=== PATIENT | male | born 1955 | race Caucasian/White ===

== ENCOUNTER 2021-03-04 17:29 | Inpatient (IN) | payer OTHER ==
[~2021-03-04] VITALS: Ht 180.3 cm; Wt 68.5 kg
[2021-03-04 19:55] VITALS: BP 120/70
[2021-03-04] MEDS ORDERED: CARBIDOPA-LEVO1 EA10 PO (20:48)
[2021-03-04] MEDS ORDERED: LANTUS100 UNIT/M SUBQ (20:50)
[2021-03-04] MEDS ORDERED: HUMALOG100 UNIT/1 SUBQ (20:51)
[2021-03-04] MEDS ORDERED: SEROQUEL 25 MG25 M1 PO (20:52)
--- NOTE | 2021-03-05 05:25 | NUR ---
RECEIVED REPORT FROM OFFGOING [facility] RN, SHE HAD RECEIVED REPORT FROM PENDING SALE TO [facility] ED. 03-04-21 PT ARRIVED 1855 PT AAOX4, VS B/P 120/70, P 108, R 16, T 97.8, 100% O2 SAT RA RR EVEN AND NONLABRED. PT LUNGS CLEAR, HT RR, ABD ACTIVE/SOFT/FLAT. PT HAS HX QUILEUTE, HTN, DMII. PT PRESENTS CALM AND COOPERATIVE, BUT TALKS LOUD R/T QUILEUTE, PT IS VERY SOCIALABLE. PT DENIES SI/HI. HCP'S CONTACTED AND ORDERS RECEIVED. LATER PT PRESENTED WITH FORGETFULNESS AND CONFUSION, BUT WAS EASILY REORINATED. PT HAS BEEN PLEASANT AND NOTED PT TRYING TO BE SOCIABILE AND HELPFUL TO PEER. ZERO S/S OF ACUTE DISTRESS NOTED, PT WILL CONTINUE TO BE MONITOR PER [facility] PROTOCOL.
[2021-03-05 06:17] LABS: CHOLESTEROL 161 mg/dL (<200); HDL CHOLESTEROL 40 mg/dL (>40); LDL CHOLESTEROL 97 mg/dL (<100); TRIGLYCERIDE 123 mg/dL (<150); VLDL 25 mg/dL (<40)
[2021-03-05 06:22] LABS: SERUM ASSESSMENT Clear
[2021-03-05 09:12] VITALS: BP 113/73
[2021-03-05 09:18] LABS: ANION GAP 10 mmol/L (7-16); BUN 18 mg/dL (7-18); CALCIUM 10.1 mg/dL (8.5-10.1); CHLORIDE 104 mmol/L (98-107); CO2 26 mmol/L (21-32); CREATININE 0.8 mg/dL (0.7-1.3); GLUCOSE 210 mg/dL (74-106); MAGNESIUM 2.2 mg/dL (1.8-2.4); POTASSIUM 4.6 mmol/L (3.5-5.1); SODIUM 140 mmol/L (136-145)
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
[2021-03-05 19:29] VITALS: BP 118/91
[2021-03-06 01:06] LABS: GLYCOHEMOGLOBIN (HGB A1C) 10.8 % (4.8-5.6)
--- NOTE | 2021-03-06 04:59 | NUR ---
03-05-21 CARE TRANSFERRED 1914 OBSERVED PT SITTING IN DAY ROOM WITH SCRAP BALLER, PT IS CURRENTLY ON 1:1 WHILE AWAKE. PT AAOX3, VSS STABLE, NOTED SLIGHTLY ELEVATED PULSE 110, JORDY PULSE APICAL 90, RR EVEN AND NONLABOED ON RA. PT DENIES PAIN AND SI/HI. PT IS VERY SOCIALABLE AND WILLING COMMUNICATION, PT TALKS LOUD R/T HIS HARD OF HEARING. LATER NOTED PT PRESENTATION CHANGED AND HE WAS CONFUSED AND EXIT SEEKING. DURING MEDICATION PT HAD NO DIFFICULTIES. PT HAS BEEN RESTLESS AND IMPULSIVE, AND TRYING TO CARRY CONVERSATION WITH OTHER, BUT OFTEN TALKING TO HIMSELF. PT HAS HAD MOMENTS OF DELUSIONS, WHERE HE REPORTED THAT WE NEED TO SHUT THE WINDOWS OR THE RACOON'S WILL GET IN. ZERO S/S OF ACUTE DISTRESS NOTED, PT WILL CONTINUE TO BE MONITOR PER [facility] PROTOCOL.
--- NOTE | 2021-03-06 09:50 | NUR ---
LARRY and Dr. Lopez spoke with pt's daughter Katie ([phone]) and obtained hx about pt. LARRY scheduled a family meeting with Katie on 03/11 @1130 am. LARRY sent [facility] Welcome to [email or web address] LARRY team will continue to follow pt during his stay on this unit.
[2021-03-06 09:54] VITALS: BP 100/74
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
--- NOTE | 2021-03-06 17:51 | NUR ---
Alert and orientated to name only. Occassional visual hallucinations. Calm and cooperative, redirectable. Denies SI/HI. Breath sounds clear. Reg HR auscultated. Color pink with brisk capillary refill and palpable peripheral pulses. Independent with voiding. Active bowel sounds over soft, flat abdomen. Milk of Mag given PO d/t no BM since prior to admission. Ambulating with regular, steady gait. Compliant with meds today, taking whole with liquid.
[2021-03-06 20:51] VITALS: BP 96/67
--- NOTE | 2021-03-07 02:49 | NUR ---
ASSUMED CARE OF PATIENT 03/06/2021 @ 1900. PATIENT IN FULLY EXTENDED RECLINER WITH ADDITIONAL CHAIR AT FEET TO KEEP THEM ELEVATED. PATIENT IS RESTING WITH EYES CLOSED, DEEP, EVEN RESPIRATIONS. PATIENT AWAKENS TO NAME AND MOVEMENT BEUT QUICKLY RETURNS TO CLOSING EYES AND NOT INTERACTING WITH STAFF. ADVISED PATIENT I NEEDED TO DO ASSESSMENT OF HIS ABDOMEN AND LUNGS, AND GIVE HIS DOSE OF INSULIN, HE OPENED HIS EYES SLIGHTLY WHILE I PERFORMED BY EXAM AND ADMINISTERED HIS INSULIN. HE NEVER VERBALLY ENGAGED, AND DID NOT TAKE HIS 2100 DOSE OF SEROQUEL. HE WAS COOPERATIVE WITH ANCILLARY STAFF IN GETTING HIS VITAL SIGNS AND ACCUCHECK DONE. HE HAS REMAINED IN THE DAYROOM RECLINER, RESTING WITH EYES CLOSED, RESPIRATIONS WITH EASE AND NO APPARENT DISTRESS AND HAS NOT MADE ANY NEEDS KNOWN TO STAFF. STAFF WILL CONTINUE TO MONITOR MR. HALL Q 12 [facility] PROTOCOL AND INTERVENE NEEDED.
[2021-03-07 09:32] VITALS: BP 104/61
--- NOTE | 2021-03-07 13:33 | NUR ---
Alert and orientated to name only. No speech/behavior suggestive of SI/HI. Calm, cooperative and compliant. Sitting quietly in dining room, gets up and ambulates with regular, steady gait. Breath sounds clear. Reg HR auscultated. Color pink with brisk capillary refill and palpable peripheral pulses. No edema noted. Independent with voiding. Active bowel sounds over soft, flat abdomen. No BM documented this admission, MOM given yesterday without results. Ambulates with regular, steady gait.
[2021-03-07 20:12] VITALS: BP 104/61
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
--- NOTE | 2021-03-08 06:23 | NUR ---
PATIENT HAS CONTINUED TO SIT ON EDGE OF BED IN ROOM, CALM BUT EASILY AGGITATED WHEN QUESTIONED IF HE WANTED TO LIE DOWN. WHEN ASKING IF PATIENT WANTED TO COME IN TO DAYROOM AND WATCH THE NEWS AND HAVE A CUP OF COFFEE, PATIENT STATED THE FOLLOWING, "THEY TOLD ME TO WAIT IN ROOM 202. MOM WAS RIGHT THERE ON THE BED AND NOW SHE'S GONE. I HAVEN'T LFET HER. WHERE DID THEY TAKE HER. IT MUST REALLY BE POURING DOWN OUTSIDE IF THEY WON'T VINICIUS LET ME GO WITH HER." PATIENT BEGAN WALKING TO DAYROOM AND THEN STATED HE NEEDED TO SHIT AND RETURNED TO HIS ROOM.
[2021-03-08 08:43] VITALS: BP 150/84
[2021-03-08 13:25] LABS: ABSOLUTE NEUTROPHILS 4.4 thou/uL (1.4-8.2); BASOPHILS 1.2 % (0.0-2.0); EOSINOPHILS 1.3 % (0.0-3.0); HEMATOCRIT 40.3 % (42.0-52.0); HEMOGLOBIN 13.5 gm/dL (14.0-18.0); LYMPHOCYTES 24.9 % (24.0-44.0); MCH 30.6 pg (26.0-34.0); MCHC 33.5 g/dL (28.0-37.0); MCV 91.4 fL (80.0-100.0); MONOCYTES 9.1 % (1.0-8.0); PLATELET COUNT 171 thou/uL (150-400); POLYS 63.5 % (36.0-66.0); RBC 4.41 mil/uL (4.50-6.00); RDW 14.5 % (10.5-14.5)
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
--- NOTE | 2021-03-09 04:31 | NUR ---
PATIENT HAS CONTINUED TO BE RESTLESS, INTRUSIVE, WANDERING UNIT, TRYING TO OPEN ALL DOORS ON UNIT, ENTERING PATIENT ROOMS, DIFFICULT TO REDIRECT. CONTINUES TO BE HYPERVERBAL, STATING HE CAN'T GO IN TO HIS ROOM BECAUSE ASIF DOES NOT WANT HIM IN THERE ANY LONGER. WAS COOPERATIVE WITH LAB DRAW THIS A.M. AND CONTINUES TO TALK WHILE SITTING IN DAYROOM THAT HAS THE LIGHTS DIMMED. STAFF WILL CONTINUE TO MONITOR PER [facility] PROTOCOL.
[2021-03-09 06:28] LABS: ALBUMIN 3.8 g/dL (3.4-5.0); CALCIUM 10.9 mg/dL (8.5-10.1); CREATININE 1.1 mg/dL (0.7-1.3); POTASSIUM 4.3 mmol/L (3.5-5.1); TOTAL PROTEIN 7.4 g/dL (6.4-8.2)
[2021-03-09 08:56] VITALS: BP 108/78
--- NOTE | 2021-03-09 09:01 | NUR ---
ASSUMED CARE AT 0700 TODAY. PT. SITTING IN THE DINING ROOM REFUSING BLOOD SUGAR AND REFUSED TO TAKE HIS MEDICATIONS. IM OLANZAPIME GOTTEN READY, SECURITY CALLED AND IM GIVEN TO THE PT. PT. GOT UP RUNNING TO HIS ROOM AND SLAMMING THE DOOR. PCT AND THIS RN WENT TO PT. ROOM. HE TRIED TO HOLD THE DOOR SHUT, BUT DID GIVE UP. RN WAS GIVING PEER MEDICATIONS. HE TRIED TO TAKE HER BREAKFAST. STAFF STOPPED HIM. PT. STATES HE IS SEEING AND HEARING THINGS. HE IS TALKING ABOUT SEEING/HEARING HIS BROTHER AND OTHER FAMILY MEMBERS.
[2021-03-09 19:26] VITALS: BP 114/79
--- NOTE | 2021-03-09 22:33 | NUR ---
Assumed care of pt at 1910 from day shift nurse. Pt at that time was sitting in day room occasionally mumbling to himself. He was cooperative with staff and is accepting of redirection when needed. Pt is alert to person only. Pt continues to have visual hallucinations as evidence by he thought my medication cart was a type of machine he needed to fix. He did offer to fix it for me. Pt blood glucose was 231 at hs, received his 20 units of lantus, pt took his medication and this nurse assessed if he swallowed it and he laughed at my questions but he did comply, pt is receptive to following directions from PCT, Pt continues to ramble as he is walking to his room, pt now is currently lying in his bed and appears to be sleeping, monitoring pt per [facility] protocol. PT ambulates ad harpreet without assistive devices and is pretty steady with his gait, Lung sounds clear, abd soft non tender, Denies SI/HI but continues to have visual hallucinations, did not currently display signs of auditory hallucinations.
[2021-03-10 08:53] VITALS: BP 127/86
--- NOTE | 2021-03-10 15:39 | NUR ---
Assumed pt care at 0700. pt was oriented to person. Assessments completed, vss. Took meds whole, no difficulty noted. No sign of acute distress noted upon assessments. Ambulates with a steady gait. co-operative with care and meds admin. AT approximately 1500, pt started talking to unseen person and responding. Insulin adminisered as ordered. pt wanders the unit talking to self. pt was irritable but was redirectable. No c/o pain at this time. NO sign of si/hi noted. At this time pt is in the day room. will continue to monitor pt.
[2021-03-10 19:35] VITALS: BP 111/78
--- NOTE | 2021-03-10 23:15 | NUR ---
Assumed patient care at approx 1900 hrs. Pt alert/oriented to self. Patient in day room watching tv and calm at beginning of shift.He denied any pain. When asked if he has any depression or anxiety patient began talking about a woman that he can't find. Difficult to keep patient's attention. He later began walking around and talking to different patients that were in the day room. Patient can be intrusive and try to touch some of his peers that are in the susan chairs. Patient had to be redirected multiple times away from his peers.He did eat his pm snack and took his hs med without any incident. He continues to sit in the day room and talk with unseen other. Will continue to monitor and follow plan of care. Q 12 min safety checks per protocol.
--- NOTE | 2021-03-11 06:12 | NUR ---
PT DID NOT SLEEP ALL NIGHT. PT SPENT MOST OF EVENING SHIFT IN THE DAY ROOM TALKING TO UNSEEN PERSON. NO ACTS OF AGGRESSION NOTED. PT CONTINUED TO SAY HE WAS NOT TIRED.
[2021-03-11 09:21] VITALS: BP 127/85
--- NOTE | 2021-03-11 13:43 | NUR ---
Followup: remains on [facility] for dementia and delusions. Eating 100% of meals and wt is stable. BG in good control. Remains low nutrition risk
--- NOTE | 2021-03-11 14:13 | NUR ---
Assumed pt care at 0700. pt was alert and oriented to self. assessments completed, vss. pt took meds whole, no difficulty noted. Ambulates with a steady gait. Denies si/hi. denies pain at this time. No sign of acute distress noted upon assessments. Pt is co-operative with media marketing director. pt Refused shower, family memebers and staffs tried, pt refused. pt wanders around the unit talking to an unseen person. No BM noted at this time. WIll continue to monitor.
--- NOTE | 2021-03-11 15:00 | NUR ---
LARRY attended a family meeting with pt's daughter Katie, son Steven, and Dr. Lopez. Dr. Lopez explained to family that he believes pt suffers from a dementia but could not say he suffers from Lewy Body as more testing needs to occur first. He did say that pt does need 24 hour care and supports. LARRY provided a listing to Katie from the Medicare.gov website. She is to tell SW 3-5 options for placement to send referrals, or tell SW if she plans to take pt to her home. SW team will [id number] to follow pt during her stay on this unit.
--- NOTE | 2021-03-11 15:37 | NUR ---
RT Progress Note- Steven has been minimally active in recreational therapy groups. Steven is very hard of hearing, which limits his ability to follow along. However it has been noted that when Steven is able to hear, he is unable to remain focused to topics. Steven has used no aggression in groups but has made some crude or inappropriate comments. When redirected he laughs. SLIP DUMPER will continue to encourage Steven's improved participation.
--- NOTE | 2021-03-12 02:56 | NUR ---
Assumed care on 03/11/21 @ 19:15, ambulates throughout the mileu holding a tub with some of his clothes in it. Exit seeking and tries the exit door and other doors. Very L[place] and answers a different question than he is asked. Refused VS, Acucheck and P.O. meds. Meds given crushed in ice cream. When staff tries to take VS or acucheck, becomes combatitive. Retired to bed @ aprox 2300. Will continue to monitor for safety and comfort. Bed in low position.
[2021-03-12 08:00] VITALS: BP 111/76
[2021-03-12 09:05] VITALS: BP 111/76
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
--- NOTE | 2021-03-12 14:37 | NUR ---
SW received pt's labs and MRI results from [facility] via fax. MRI did not indicate any impairment. Yesterday Steven Lora mentioned they were talking to pt's condenser operator on to discuss if he has DPOA documents. SW team will continue to follow pt during his stay on this unit.
[2021-03-12 20:05] VITALS: BP 101/73
--- NOTE | 2021-03-13 04:27 | NUR ---
PATIENT CARE WAS TRANSFERRED TO THIS TECHNICAL IMPLEMENTATION LEAD AT 1900 03/12/2021. PATIENT IS AWAKE AND ORIENTED ONLY TO PERSON. HE IS RESTLESS AND WANDERING THE UNIT, STAFF CONTINUALLY REDIRECTING HIM TO STAY OUT OF PATIENT ROOMS AND TO LEAVE SLEEPING PATIENTS ALONE. HE WAS COMPLIANT WITH MEDICATIONS. HE CONTINUED TO VERBALLY INTERACT WITH UNSEEN OTHERS. SPEECH IS CLEAR, NOT PRESSURED, ILLOGICAL THOUGHT PROCESSES, TOPICS CONTINUE TO BE FOCUSED ON WEAPONS. PATIENT FELL ASLEEP IN A GERICHAIR ON THE . STAFF CONTINUES TO MONITOR PER [facility] PROTOCOL.
[2021-03-13 08:47] VITALS: BP 116/78
--- NOTE | 2021-03-13 16:07 | NUR ---
PACING IN HALLWAYS-INTRUSIVE AT TIMES ENTERING OTHERS ROOMS-SLIGHTLY BELLIGERENT WITH ATTEMPTS TO REDIRECT AT TIMES BUT NO PHYSICAL AGGRESSION NOTED. REFUSED AM INSULIN STATING "I ALREADY HAD THAT IT WOULD BE TOO MUCH" APPETITE IS GOOD. GAIT STEADY WITHOUT ASSISTVE DEVICES. TAKES MEDS CRUSHED IN ICE CREAM. DENIES PAIN. ORIENTED TO NAME ONLY
[2021-03-13 19:32] VITALS: BP 111/66
--- NOTE | 2021-03-13 22:36 | NUR ---
ASSUMED PATIENT CARE AT 1900. PATIENT SITTING IN DAY AREA AMONGST OTHER PATIENTS, TALKING TO OTHERS OR TO OTHERS NOT SEEN. DOES WANDER AT TIMES AND CAN BE INSTRUSIVE EITHER WALKING IN OR PEERING IN OTHER PATIENT ROOMS. COMPLIANT WITH MEDICATIONS, TAKEN WHOLE WITH WATER. DID ACCEPT HIS HS LONG ACTING INSULIN, THOUGH REFUSED HS ACCUCHECK. CURRENTLY WALKING AND TALKING IN THE LOZANO. GAIT STEADY. WILL CONTINUE TO MONITOR.
[2021-03-14 09:57] VITALS: BP 94/64
--- NOTE | 2021-03-14 13:41 | NUR ---
Assumed pt care at 0700. pt was alert and oriented to self. Assessments completed, vss. pt took his meds whole, NO difficulty noted. AMbulates with a steady gait. calm and co-operative with care. pt is confuse, talks to an unseen person. No sign of si/hi noted, No c/o pain noted at this time. meds administered as ordered. 1 occurance of BM at this time. No sign of acute distress noted upon assessments. participated in AM groups. AT THIS TIME PT IS SITTING IN THE DAY ROOM. WILL CONTINUE TO MONITOR.
--- NOTE | 2021-03-14 14:23 | NUR ---
LARRY contacted Katie. No answer. LARRY left a msg. LARRY team will continue to follow pt during his stay on this unit.
[2021-03-14 19:48] VITALS: BP 97/70
[2021-03-14 19:50] VITALS: BP 97/70
--- NOTE | 2021-03-14 23:37 | NUR ---
ASSUMED PATIENT CARE AT 1900, PATIENT LYING IN BED RESTING QUIETLY APPEARING TO BE ASLEEP. VERY DROWSY. NO S/S OF DISTRESS. MINIMALLY RESPONSIVE TO SHIFT ASSESSMENT. WILL CONTINUE TO MONITOR.
[2021-03-15 07:33] VITALS: BP 119/72
[2021-03-15 09:43] VITALS: BP 119/72
--- NOTE | 2021-03-15 11:22 | NUR ---
1115 RESUMMED CARE FROM OVERNIGHT SHIFT THIS AM, PATIENT IN DAY ROOM SITTING QUIET. PATIENT ALERT TO SELF ONLY NOT ABLE TO TELL ME ABOUT SI/HI/AH/VH AT PRESENT. PATIENT ATE BREAKFAST TOOK MEDICATION WITHOUT INCIDENCE PATIENTS ABDOMEN SOFT BOWEL SOUNDS PRESENT. PATIENTS LUNGS CLEAR PATIENT DID NOT PARTICIPATE IN GROUP THIS AM. PATIENT RESTING IN ROOM UNTIL LUNCH COMES TO UNIT. WILL CONTINUE TO MONITOR PATIENT FOR SAFETY AND BEHAVIORS.
[2021-03-15 19:58] VITALS: BP 95/65
--- NOTE | 2021-03-16 06:27 | NUR ---
03-15-21 CARE TRANSFERRED 1900 OBSERVED PT SITTING IN DAY ROOM. LATER PT AAOX2, VSS, RR EVEN AND NONLABORED ON RA, PT DENIES PAIN AND SI/HI. PT PRESENTS PLESANT, CALM AND COOPERATIVE, PT IS [place], AND OFTEN TALKS TO SELF. ZERO S/S OF ACUTE DISTRESS NOTED, PT WILL CONTINUE TO BE MONITOR PER [facility] PROTOCOL.
[2021-03-16 08:59] VITALS: BP 109/64
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
--- NOTE | 2021-03-16 14:58 | NUR ---
LARRY received a message from Dr. Lopez that patient's dtr Katie would like to speak to LARRY regarding patient's discharge. LARRY attempted to reach Katie but received voice mail. LARRY left a message asking her to call LARRY. SW team will remain available.
[2021-03-16 19:30] VITALS: BP 101/71
--- NOTE | 2021-03-17 01:13 | NUR ---
03-16-21 CARE TRANSFERRED 1900 OBSERVED PT SITTING IN DAY ROOM. LATER PT AAOX1, VSS, RR EVEN AND NONLABORED ON RA. PT DENIES PAIN AND SI/HI. LATER PT INTRUSIVE WITH OTHER PATIENT IN DAY ROOM ABLE TO REDIRECT PT. LATER PT CONTINUES INTRUSIVE BEHAVIOR AND AGITATED, HAVING DELISIONS ABOUT HIS DAUGHYTER GAGAN, YELLING AND HOLLARING. HCP Marcelina LIND CONTACTED ORDERS RECEIVED WITH MANUAL HOLD.
[2021-03-17 08:44] VITALS: BP 87/44
--- NOTE | 2021-03-17 09:34 | NUR ---
LARRY again called Katie to get insight to if they were able to locate pt's DPOA docs or if they are now pursing guardianship. LARRY was told by the Weekend LARRY that pt had placement options she needed referrals sent to. LARRY will discuss with Katie that pt will need a decision maker before he can be placed. LARRY team will continue to follow pt during his stay on this unit.
[2021-03-17 10:21] LABS: ABSOLUTE NEUTROPHILS 3.4 thou/uL (1.4-8.2); BASOPHILS 0.6 % (0.0-2.0); EOSINOPHILS 2.2 % (0.0-3.0); HEMATOCRIT 35.9 % (42.0-52.0); HEMOGLOBIN 12.2 gm/dL (14.0-18.0); LYMPHOCYTES 26.3 % (24.0-44.0); MCH 30.4 pg (26.0-34.0); MCV 89.6 fL (80.0-100.0); MONOCYTES 8.3 % (1.0-8.0); PLATELET COUNT 151 thou/uL (150-400); POLYS 62.6 % (36.0-66.0); RDW 14.3 % (10.5-14.5); WBC 5.5 thou/uL (4.0-11.0)
[2021-03-17 10:30] LABS: ALBUMIN 2.8 g/dL (3.4-5.0); CALCIUM 9.4 mg/dL (8.5-10.1); CREATININE 0.8 mg/dL (0.7-1.3); MAGNESIUM 2.2 mg/dL (1.8-2.4); PHOSPHORUS 2.7 mg/dL (2.6-4.7); POTASSIUM 3.6 mmol/L (3.5-5.1); TOTAL BILIRUBIN 0.6 mg/dL (0.2-1.0); TOTAL PROTEIN 5.9 g/dL (6.4-8.2)
--- NOTE | 2021-03-17 11:57 | NUR ---
PT ALERT AND ORIENTED TIMES THREE. VSS. PT DENIES PAIN/SOA/SI/HI/AH/VH. PT TOLERATES MEDS AND MEALS. PT DID NOT ATTEND GROUPS. PT HAS LITTLE INTERACTIONS WITH STAFF AND PEERS, STAYED IN HIS ROOM FOR MOST OF THE SHIFT. WILL CONTINUE TO MONITOR.
[2021-03-17 20:32] VITALS: BP 90/59
--- NOTE | 2021-03-17 21:20 | NUR ---
NIGHT TIME ACCU CHECK COMPLETED AND RESULTED AT 48. PT GIVEN 300ML OF APLE JUICE AND 28 GRAMS OF PEANUT BUTTER. BLOOD SUGAR RECHECKED AFTER 15 MINUTES WITH A RESULT OF 101. FEATHEREDGER AND REDUCER MACHINE HOSPITALISTS CONTACTED AND AN ORDER TO HOLD HS INSULIN RECEIVED. HS INSULIN NOT GIVEN PER ORDER.
--- NOTE | 2021-03-18 03:06 | NUR ---
ASSUMED PT CARE AT 1900. PT SITTING IN DAYROOM WATCHING TV. HE APPEARS WELL GROOMED AND IS DRESSED APPROPRIATE. HE PRESENTS WITH A FLAT AFFECT AND DESCRIBES HIS MOOD "DROWSY". PT APPEARS A LETHARGIC AND SLOW TO RESPOND TO QUESTIONS. PT BLOOD SUGAR CHECKED AND THE RSULTS WERE 48. PT GIVEN PEANUT BUTTER AND APPLE JUICE. BLOOD SUGAR RECHECKED IN 15 MINUTES AND RESULTS WERE 101. CIRCULATION DIRECTOR HOSPITALIST NOTIFIED AND ORDER TO HOLD HIS LANTUS RECEIVED. PT MORE ACTIVE AND RESPONDS MORE TIMELY. HIS PHYSICAL ASSESSMENT IS WNL AND VITAL SIGNS ARE BP-101/71, P-107, R-20, T-98.0, 02-99%. KANDY IS MEDICATION COMPLIANT AND COOPERATIVE WITH ASSESSMENT. DURING ASSESSMENT KANDY STATES HE CANNOT HEAR WELL AND REQUIRES LOUD VERABLIZATION. MASKS INHIBIT HIS READING LIPS. HE AMBULATES WITH A STEADY GAIT AND WEARS NON SKID YELLOW SOCKS. PT CONTINUES TO SIT IN DAYROOM AND WATCH TV. HE THEN LIED DOWN ON THE COUCH IN THE DAYROOM. HE WAS ENCOURAGED TO GO TO HIS ROOM AND REST BUT PT REFUSED. HE CONTINUES TO REST IN DAYROOM. WILL CONTINUE TO MONITOR AND FOLLOW PLAN OF CARE. PT CONTINUES TO BE ON 12 MINUTE CHECKS PER PROTOCOL.
[2021-03-18 06:27] LABS: ABSOLUTE NEUTROPHILS 4.7 thou/uL (1.4-8.2); BASOPHILS 0.9 % (0.0-2.0); EOSINOPHILS 1.7 % (0.0-3.0); HEMATOCRIT 37.4 % (42.0-52.0); HEMOGLOBIN 12.6 gm/dL (14.0-18.0); LYMPHOCYTES 21.4 % (24.0-44.0); MCH 30.2 pg (26.0-34.0); MCHC 33.8 g/dL (28.0-37.0); MCV 89.5 fL (80.0-100.0); MONOCYTES 7.6 % (1.0-8.0); PLATELET COUNT 157 thou/uL (150-400); POLYS 68.4 % (36.0-66.0); RBC 4.17 mil/uL (4.50-6.00); RDW 14.3 % (10.5-14.5); WBC 6.9 thou/uL (4.0-11.0)
[2021-03-18 06:43] LABS: CALCIUM 9.3 mg/dL (8.5-10.1); CREATININE 0.8 mg/dL (0.7-1.3); POTASSIUM 3.6 mmol/L (3.5-5.1)
--- NOTE | 2021-03-18 08:45 | NUR ---
RT Progress Note- Steven's participation in recreation therapy groups has been limited d/t extreme difficulty hearing and poor attention. Steven is however receptive to following along with exercises when attentive enough to watch and copy instructions. He has difficulty following along with conversation when engaged 1;1 as topics jump from one to another quickly. He has not presented aggressive or agitated when interacting with RT staff and seldomly requires redirection from inappropriate context in conversation. VICE PRESIDENT INDUSTRIAL RELATIONS will encourage continued participation to Steven's level of ability.
--- NOTE | 2021-03-18 09:18 | NUR ---
LARRY received a msg from Steven Lora [phone] asking for a call back. Steven told ALRRY that they did locate the DPOA document and he or Katie will bring it by tomorrow morning to the [facility]. He also said that they do have a couple places they would like referrals sent to which are [facility] and [facility]. He said there are other places and he will call Katie to get those options. He asked LARRY to communicate with him since Katie is not returning LARRY calls. LARRY said ok. LARRY team will continue to follow pt during his stay on this unit.
[2021-03-18 09:31] VITALS: BP 101/65
--- NOTE | 2021-03-18 11:37 | NUR ---
Followup: remains on [facility] unit. Note of pt's wt starting to decline from 151 lb to 144 lb over 2 weeks (7 lb/4%). Eating 100% of nearly all meals except 3 meal refusals in 3 days. Difficulty with BG management 48-310, meds being adjusted. A1C 10.8. On carb control diet. Visit in day room, pt very [place] RESERVATION. Daughter present to help communicate. pt reports "likes everything". Would like to trial glucerna shakes-order bid. Remains low nutrition risk but will continue to follow wt trends.
[2021-03-18 19:30] VITALS: BP 104/66
--- NOTE | 2021-03-18 20:02 | NUR ---
0700 ASSUMED CARE OF PATIENT, PATIENT SITTING IN CHAIR IN DAYROOM. PATIENT CALM AND COOPERATIVE. NO C/O PAIN. AMB WITH STEADY GAIT. MEDICATION REFUSED IN AM INCLUDING INSULIN, DUMPER BAILER OPERATOR ATTEMTED TO EXPLAIN THE NEED FOR MEDS. PATIENT REFUSED. VS STABLE, LS CLEAR, BS ACTIVE. DAUGHTER HERE FOR AM VISITATION. MEDICATION TAKEN TO PATIENT WHILE DAUGHTER PRESENT, PATIENT ENCORAGED BY DAUGHTER TO TAKE. PATIENT AGREES AND TAKES MEDICATION AND INSULIN ORDERED. PATIENT STATES "I DO NOT KNOW WHY I TAKE INSULIN I HAVE NOT TAKEN IT FOR MANY YEARS". SITS IN DAYROOM WATCHING TV OFF AND ON TODAY.
--- NOTE | 2021-03-19 03:39 | NUR ---
ASSUMED PT CARE AT 1900. PT SITTING IN DAYROOM. HE APPEARS DISHEVELD AND IS DRESSED APPROPRIATE. HE DOES HAVE A FOUL BODY ODOR AN WAS ENCOURAGED TO SHOWER. PT REFUSED. HE PRESNTS WITH A BLUNTED AFFECT AND DECRIBES HIS MOOD "JUST OKAY". KANDY IS HARD OF HEARING AND REQUIRES A LOUD TONE WHEN SPEAKING WITH HIM. HE IS COOPERATIVE WITH ASSESSMENT. HE CURRENTLY DENIES ANY THOUGHTS OF SELF HARM OR HARMING OTHERS. HE DENIES ANY ANXIETY OR DEPRESSION. HE DENIES ANY AH/VH. HIS PHYSICAL ASSESSMENT WAS NEGATIVE. HIS VITAL SIGNS ARE WNL. HIS HS BLOOD SUGAR WAS 140 AND HE RECEIVED HIS SCHEDULED DOSE OF INSULIN. KANDY IS MED COMPLIANT AND TAKES HIS MEDS WHOLE. HE HAS SPENT THE ENTIRE SHIFT IN DAY ROOM. HE REFUSES TO GO TO HIS ROOM AND SLEEP. AT ONE POINT HE DID GET UP A YELL "WHERE IS MY PILLOW. IF I DO NOT GET MY PILLOW I WILL WAKE EVERYONE UP IN THIS WHOLE PLACE". PT DEESCLATED AND PILLOW PROVIDED. KANDY CONTINUES TO REST IN THE DAYROOM. WILL CONTINUE TO MONITOR AND FOLLOW PLAN OF CARE. HE CONTINUES TO BE ON 12 MINUTE CHECKS PER PROTOCOL.
[2021-03-19 10:36] VITALS: BP 102/73
--- NOTE | 2021-03-19 11:48 | NUR ---
PATIENT WAS IN DINNING ROOM LAYING IN A CHAIR WHEN CARE ASSUMED. THIS CENTER HOLE REAMER APPROACHED PATIENT WITH MORNING MEDICATION, HE REFUSED DESPITE ENCOURAGEMENT FROM MULTIPLE STAFF. HE STATES "THAT IS THE WAY IT GOES, I HAVE TAKEN ENOUGH MEDICINE, I TOLD THEM AM NOT TAKING NO MORE PILLS". BACK UP ZYPREXA 2.5MG GIVEN TO RIGHT DELTOID FOR REFUSING PO SEROQUEL, WELL TOLERATED. PATIENT DENIES SUICIDAL/HOMICIDAL IDEATION, UNABLE TO APPROPRIATELY RESPOND TO FURTHER ASSESSMENT QUESTIONS DUE TO COGNITIVE IMPAIRMENT. PATIENT IS EATING MEALS, AND DRINKING FLUID WELL. MOOD IS DEPRESSED, AFFECT IS FLAT/BLUNTED. NO SIGN OF ACUTE DISTRESS NOTED AT THIS TIME, WILL CONTINUE TO ENCOURAGE MEDICATION COMPLIANT, AND MONITOR FOR SAFETY.
--- NOTE | 2021-03-19 15:42 | NUR ---
LARRY spoke with Katie briefly during her visit and attempted to give to her an update on pt receiving a prn injection this morning due to non-compliance with meds. Katie said she did not understand. LARRY contacted Steven Lora and provided to him an update. LARRY received a valid copy of pt's dpoa via email from Steven Amaya. LARRY placed a copy in pt's chart. SW team will continue to follow pt during his stay on this unit.
[2021-03-19 20:08] VITALS: BP 103/75
--- NOTE | 2021-03-20 02:50 | NUR ---
Assumed care on 03/19/21 @ 19:15, Awake Alert, Oriented to person only. Took meds crushed in ice cream. Confused and Hard of Hearing noted. Ambulates with a steady gait. Finally retired to bed @ about 0300. Bed in low position, bed alarm set, will continue to monitor as per unit protocol.
[2021-03-20 08:41] VITALS: BP 113/69
--- NOTE | 2021-03-20 11:33 | NUR ---
WOUND CONSULT; THE PATIENT WAS FOUND AMBULATING IN THE HALLWAYS. RETURNING TO THE ROOM I ASSESSED THE BUTTOCKS. I IDENTIFIED AREAS BILATERALLY. I VISUALIZED TWO SMALL AREAS THAT HAVE FRAYED EDGES CONSISTANT WITH FRICTION. NO DRAINAGE. THESE ARE NOT FULL THICKNESS ONLY PARTIAL THICKNESS INURIES. MINOR IN NATURE. RECOMMENDATIONS; GARRICK LOPES BID/PRN ATTEMPTED TO DISCUSS WITH RN.
--- NOTE | 2021-03-20 19:33 | NUR ---
Alert and orientated to name only. Calm, cooperative and compliant today. Ambulating with regular, steady gait. Took meds without difficulty. Denies SI/HI. Breath sounds clear. Reg HR auscultated. Color pink with brisk capillary refill and palpable peripheral pulses. Independent with voiding. Active bowel sounds over soft, rounded abdomen. Smear of stool and moisture between buttocks with excoriation. 1cm x 2 cm ulcer noted on L buttock, cleaned, photographed and zpaste applied. Requested Dr. Lopez [facility] wound consult. BG of 54 at lunch txed with apple juice, repeat BG 91. Dr. Santiago notified, scheduled insulin and glyburide dced per order.
[2021-03-20 19:49] VITALS: BP 86/65
[2021-03-21 09:53] VITALS: BP 86/59
--- NOTE | 2021-03-21 12:57 | NUR ---
Alert and orientated to name only. Calm and cooperative this AM, compliant with cares. Initially adamantly refused PO meds this AM but then took crushed in pudding on third approach. Denies SI/HI. Breath sounds clear. Reg HR auscultated. Color pink with brisk capillary refill and palpable peripheral pulses. Independent with voiding. Active bowel sounds over soft, flat abdomen. Ambulates with regular, steady gait. Ulcer per L buttock slightly improved, cleaned with NS and covered with Zguard. Slept most of AM after group. 3 U insulin given per sliding scale order for BG of 184.
[2021-03-21 15:00] VITALS: BP 90/68
[2021-03-21 19:32] VITALS: BP 103/91
--- NOTE | 2021-03-21 23:38 | NUR ---
ASSUMED CARE OF PT AT 1900. PT IS A/O X1 AND IS [place]. PLEASANT AND COOPERATIVE WITH CONFUSION. DENIES C/O PAIN OR DISCOMFORT. VSS AFEBRILE. MEDICATIONS GIVEN PER DEC. IS UP INDEPENDENTLY AND IS STEADY ON HIS FEET. WILL CONTINUE TO MONITOR.
[2021-03-22 09:18] VITALS: BP 93/60
--- NOTE | 2021-03-22 18:11 | NUR ---
PATIENT HAS RESTED IN ROOM MOST OF THE DAY. HE DID COME OUT FOR LUNCH BUT THEN WENT BACK INTO HIS ROOM. HE COOPERATIVE WITH CARE. RARELY REFUSES CARE. DID JOIN GROUP SESSION HOLLAND. DENIES PAIN FROM FALL. NEUROS HAVE REMAINED NEGATIVE THROUGH THE DAY. WILL CONT WITH PLAN OF CARE.
[2021-03-22 19:34] VITALS: BP 98/70
--- NOTE | 2021-03-23 05:22 | NUR ---
03-22-21 CARE TRANSFERRED 190O OBSERVED PT SITTING IN DAY ROOM. LATER PT AAOX1, VSS, RR EVEN AND NONLABORED ON RA. PT DENIES SI/HI AND PAIN. LATER PT WAS HOLLARING OUT FOR GAGAN, PT REORIENTATED AND REASSURED AND PT CALM DOWN, PT HAS BEEN EASILY REDIRECTED. ZERO S/S OF ACUTE DISTRESS NOTED, PT WILL CONTINUE TO BE MONITOR PER [facility] PROTOCOL.
[2021-03-23 07:44] VITALS: BP 86/59
--- NOTE | 2021-03-23 10:38 | NUR ---
PATIENT CARE ASSUMED AT 0700 - PATIENT BLOOD PRESSURE LOW 86/59 IN MORNING. ENCOURAGED TO DRINK MORE FLUIDS AND RISE SLOWLY WHEN SITTING. ADVISE STAFF IF DIZZY. TOOK MEDICATIONS WITHOUT INCIDENCE. ATE WELL FOR BREAKFAST - HAS BEEN WALKING HALLS THIS MORNING. STATED FEELS HAVING TO UTILIZE BATHROOM OFTEN WHEN UP. STATED HAD SEVERAL LOOSE STOOLS. ORDERED IMMODIUM WITH DR. LIND - DRESSING ON BUTTOCK INTACT AND DRY WHEN ASSESSED. NO FURTHER BREAKDOWN NOTED. AFFECT FLAT/BLUNTED AND MOOD CALM.
--- NOTE | 2021-03-23 14:08 | NUR ---
PATIENT BLOOD PRESSURE WAS 86/59 THIS MORNING. ENCOURAGED TO INCREASE FLUID INTAKE. PATIENT VITALS RETAKEN AT 1330 AND WAS 92/64 - ADVISED TO CONTINUE TO DRINK ALOT OF FLUIDS.
[2021-03-23 20:21] VITALS: BP 147/127
[2021-03-23 20:25] VITALS: BP 102/62
--- NOTE | 2021-03-24 00:20 | NUR ---
03-23-21 CARE TRANSFERRED 1899. LATER PT WAS RESTING IN BED WITH EYES CLOSED, PT EASILY AWAKEN TO VOICE, PT DENIES SI/HI AND PAIN. RECEIVEDE REPORT FROM PLANT MACHINIST AND PT MANUAL B/P 102/62, P 94, RR 16 EVEN AND NONLABORED ON RA. PT PRESENTED DROWSY AND CALM. DURING MEDICATION PT HAD NO DIFFICULTIES TAKEN WHOLE WITH WATER. LATER PT AWAKEN AND HAD LARGE LOOSE STOOL, PRN GIVEN, PT CLEAN WITH SOAP AND WATER AND BARRIER CREAM APPLIED. ZERO S/S OF ACUTE DISTRESS NOTED, PT WILL CONTINUE TO BE MONITOR PER [facility] PROTOCL.
[2021-03-24 09:28] VITALS: BP 92/60
--- NOTE | 2021-03-24 10:18 | NUR ---
Followup: eating 100% of meals and drinking glucerna shakes. Wt on bedscale had dropped to 144 but reweigh standing 151 lb which is more consistent with pts usual wt. BG much improved. Low nutrition risk
--- NOTE | 2021-03-24 13:30 | NUR ---
Assumed pt care at 0700. pt was alert and oriented to person. Assessments completed, vss. took meds whole, no difficulty noted calm and co-operative with care. denies si/hi, denies pain. ACtive bowel sounds. Ambulates with a steady gait. pt had a bowel movement this shift. meds administered as ordered. No sign of acute this distress upon assessments. AT this time pt is sitting in the day room resting. Will continue to monitor.
[2021-03-24 19:41] VITALS: BP 90/45
[2021-03-24 19:45] VITALS: BP 98/60
--- NOTE | 2021-03-25 01:20 | NUR ---
BED ALARM SOUNDED , PT FOUND ON FLOOR BY SALES AND TRAINING SPECIALIST, PT WAS RIGHT SIDE, ALERT TO SELF ONLY, NORMAL MENTATION FOR PT . PT ALSO INCONITENT OF STOOL AND URINE. ABRASION NOTED ON RIGHT KNEE. PT THEN ASSISTED TO ALANNA CHAIR AFTER PT CLEANED AND FRESH BRIEF AND PJ PANTS PLACED ON. CHAIR ALARM IN PLACE AND PT TAKEN TO DAY ROOM.
--- NOTE | 2021-03-25 05:38 | NUR ---
03-24-21 CARE TRANSFERRED 1899. RECEIVED REPORT THAT PT B/P WAS LOW, PT PRESENTS DROWSY, BUT EASILY AWAKEN TO VOICE, PT REPOSITION SELF FROM SIDE TO BACK, B/P 98/60, APICAL PULSE 102, HT RR, RR16 EVEN AND NONLABORED ON RA. PT DENIES SI/HI AND PAIN, PT BED WAS ADJUSTED FOR COMFORT. DURING MEDICATIN ADMIN PT HAD NO DIFFICULIES TAKING WHOLE WITH WATER. LATER RESPONDED TO BED ALARM AND ASSISTED PT TO BATHROOM, PT HAD LARGE LOOSE STOOL, PT WAS CLEANED WITH SOAP AND WATER, ZGUARD APPLIED, NOTED REDNESS WITH ULCER. PRN GIVEN AND PT BED WAS READJUSTED FOR COMFORT. ZERO S/S OF ACUTE DISTRESS NOTED, PT WILL CONTINUE TO BE MONITOR PER [facility] PROTOCOL.
[2021-03-25 10:18] VITALS: BP 99/66
--- NOTE | 2021-03-25 10:42 | NUR ---
LARRY faxed referrals to [facility], [facility], and [facility] which were all choices of the family. LARRY sent an update stating she has done so to both Katie and Steven. LARRY team will continue to follow pt during his stay on this unit.
--- NOTE | 2021-03-25 11:52 | NUR ---
RT Progress Note- Steven's participation in recreation therapy groups remains limited at this point d/t his extreme hearing difficulty. Steven is present in some groups at times but does not engage. It is also of note that his presence in the milieu has decreased as well as his wandering behaviors. Steven can often be found relaxing in his room. BRUISE TRIMMER will continue to provide activities as he is able.
--- NOTE | 2021-03-25 15:02 | NUR ---
Assumed pt care at 0700. pt was in his room awake. Alert and oriented to self. Active bowel sound. Assessments completed vSS. denies si/hi, denies pain at this time. Pt took meds whole, no difficulty noted. NO sign of acute distress noted upon assessments. pt was incontinent of bowel x3 at this time. pt goes into other pt room to lye on their beds. Refused to get blood sugar test at noon. DR medel saw pt. pt daughter visited pt. Pt is calm and co-operative with care. cleaned pt bottom wound with saline water and applied zguard on it. At this time pt is relaxing in the Eva chair. WILL continue to monitor pt.
[2021-03-25 19:22] VITALS: BP 97/62
[2021-03-26 00:20] VITALS: BP 136/111
[2021-03-26 01:20] VITALS: BP 91/61
--- NOTE | 2021-03-26 01:20 | NUR ---
BED ALARM SOUNDED , INSURANCE CUSTOMER SERVICE SPECIALIST FOUND PT ON FLOOR LYING ON RIGHT SIDE. PT ALERT TO SELF ONLY WHICH IS PT NORMAL MENTATION. RIGHT KNEE ABRASION NOTED APPROX QUARTER IN SIZE. Windy CHRIS VACUUM FURNACE OPERATOR NOTIFIED , PT INCONTINET OF URINE AND STOOL. THIS IA ALSO A NORMAL FOR PATIENT. PT CLEAN AND PLACED IN ALANNA CHAIR AND MOVED DAYROOM FOR CLOSER WATCH DUE PT IMPULSIVE BEHAVIOR.YELLOW SHIRT AND YELLOW SLIPPERS ON, ALONG WITH BED ALARM IN PLACE WHEN PT FOUND ON FLOOR.
[2021-03-26 10:27] VITALS: BP 138/118
--- NOTE | 2021-03-26 11:21 | NUR ---
HAS BEEN VISIBLE IN DAYROOM THIS AM. SITTING IN GERICHAIR FEEDINGG SELF BREAKFAST DURING INITIAL ASSESSMENT. GREETS STAFF PLEASNTLY. DENIES C/O PAIN/DISCOMFORT. ORIENTD TO NAME ONLY WHEN ASKED TO DESCRIBE TYPE OF BUILDING HE WAS AT [facility] "I GUESS BEHIND THE BACK BARN" DID EAT WELL WITH CONSTANT PROMPTING AND REDIRECTIONS AND ATE 100 PERVENT OF MRAL LOOSE STOOL X1 SO FAR THIS AM-BS HYPERACTIVE-IMMODIUM 4TABS GIVEN PO PRN FOR REPORTED LOOSE STOOL AT 1OO
[2021-03-26 12:20] VITALS: BP 98/68
--- NOTE | 2021-03-26 13:36 | NUR ---
ADDITIONAL 2 MORE LOOSE STOOLS-WATERY AT TIMES LEAKING OUT OF DEPENDS ONTO CLOTHING OR CHAIR THAT HE IS SITTING IN IN DAYROOM-HAS BEEN INCONTINENT OF STOOL X3 SINCE PREVIOUS ENTRY-UNABLE TO COLLECT FOR SPECIMEN IT SOAKED INTO BRIEF. SKIN TO COCYX /RECTUM EXCORIATED FROM MULTIPLE DIARRHEA STOOLS-BARRIER CREAM APPLIED SMALL OPEN AREA NOTED DURING INCONTINENT CARE.ORDER RECEIVED TO KEEP IN ROOM ON 1;1 FOR POSSIBLE C-DIFF
[2021-03-26 14:38] LABS: HEMATOCRIT 37.5 % (42.0-52.0); HEMOGLOBIN 12.6 gm/dL (14.0-18.0); MCH 29.4 pg (26.0-34.0); MCHC 33.5 g/dL (28.0-37.0); RBC 4.27 mil/uL (4.50-6.00); RDW 14.5 % (10.5-14.5); WBC 18.8 thou/uL (4.0-11.0)
[2021-03-26 14:48] LABS: CALCIUM 8.7 mg/dL (8.5-10.1); CREATININE 1.1 mg/dL (0.7-1.3); POTASSIUM 4.5 mmol/L (3.5-5.1)
--- NOTE | 2021-03-26 14:54 | NUR ---
Updates on Half-Way placements: [facility] - No answer from facility. 03/26 [facility] - Denied. Unable to meet needs. No further info was provided. [facility] - Left a msg for admissions 03/26. [facility] - Referral sent 03/26 [facility] - Referral sent 03/26 [place] - Referral sent 03/26 [facility] - Referral sent 03/26 [facility] - Referral sent 03/26 [facility] - Referral sent 03/26 LARRY sent an email to Radha Amaya providing and update. SW team will continue to follow pt during his stay on this unit.
[2021-03-26 20:14] VITALS: BP 84/53
--- NOTE | 2021-03-27 00:55 | NUR ---
ASSUMED PT BEGINNING OF THIS PM SHIFT. ORIENTED TO SELF. CONFUSED. PT WAS IN BED AT TIME OF ASSESSMENT. REQUIRED ENCOURAGEMENT TO TAKE MEDS. OTHERWISE COOPERATIVE. PT DID WAS A LITTLE IRRITABLE BECAUSE HE WAS ASLEEP BUT THERE WAS NO AGRESSION.1:1 SITTER FOR ISOLATIONS PENDING CDIFF RESULTS REMAINS IN PLACE. NO BM/DIARRHEA NOTED SINCE BEGINNING OF THIS SHIFT. NURSING TO CONTINUE TO MONITOR.
[2021-03-27 09:36] VITALS: BP 99/65
--- NOTE | 2021-03-27 13:16 | NUR ---
Sleepy this AM, awakens with firm tactile stimuli. States name and denies SI/HI. Groans occassionally with movement but denies pain and refused tylenol. Needed two person assist from chair to bed and requiring assistance with feeding. Did drink glucerna with breakfast and lunch and took additional 16 oz fluid with lunch. Breath sounds clear t/o with occassional dry cough. No s/o resp distress. Reg HR 100-110 auscultated. Color pale pink with brisk capillary refill and palpable peripheral pulses. 20g jelco placed per R forearm, 500 cc NS hung and infusing at 250 cc/hr per order per pump. No edema noted. Hyperactive bowel sounds over soft, flat abd. Very large liquid stool with whole food particles in brief and watery diarrhea during change. Incontinent of concentrated yellow urine. Cdiff positive. Drs. Owens and John aware, plan on transfer off floor to [facility]. Pt. sleeping, cooperative with IV start.
--- NOTE | 2021-03-27 15:18 | NUR ---
Update on referrals for placement: [facility] - Referral resent 03/27 [facility] -Referral resent 03/27 [facility] - Referral resent 03/27 [facility] - Referral resent 03/27 [facility] - Left a msg for admissions 03/27 [facility] - Left a msg for admissions 03/27 [facility] - Left a msg for admissions 03/27 [facility] - Denied. no mem. care beds. [facility] - Denied no mem care beds [place] - Denied. Unable to meet needs. No further info was provided. No other needs for SW team to address at this time. Pt has been transferred to the medical unit.
--- NOTE | 2021-03-28 22:37 | D ---
[facility] [place] [place] [address] DISCHARGE SUMMARY Name: STEVEN MARTEL Room #: 362-P [facility] IN M.R.#: [id number] Admission: 03/04/21 Attend Phys: Feroz Lopez DO Discharge: 03/27/21 Date of : 53 Report #: [id number] THIS REPORT FOR: cc: FAM - No family physician/PCP FAM - No family physician/PCP Feroz Lopez DO ~ DOC #: [id number] FEROZ Lopez DO DATE OF SERVICE: 03/27/2021 INPATIENT PSYCHIATRIC DISCHARGE SUMMARY ATTENDING PSYCHIATRIST: Feroz Lopez DO. SALES DEVELOPMENT MANAGER: At the time of discharge, Donta Owens M.D. DISCHARGE DIAGNOSES: Major neurocognitive disorder, likely due to Alzheimer disease, early onset with behavioral disturbance. Medical comorbidities include acute Clostridium difficile infection and colitis. Other medical morbidities at time of discharge include diabetes, on sliding scale insulin, recent UTI, B12 deficiency. The patient is being discharged to the [facility] Medical unit at [facility] due to dehydration, Clostridium difficile infection, colitis requiring isolation. Diet, medication orders will be per the hospitalist service, Dr. Owens is directing for this patient. Myself and Dr. Monica Crouch, Psychiatry will be happy to follow along if requested. The patient was medically hospitalized. LABORATORY DATA: Recent laboratories for this patient 03/26, white count 18.8, H and H 12.6, hematocrit 37.5, platelet count 197. Chemistries as of 03/26, sodium 135, potassium 4.5, chloride 101, bicarbonate 26, anion gap ____, BUN 24, creatinine 1.1, estimated GFR 67. Hemoglobin A1c 10.8, uncontrolled, glucose on 03/27 manufacturing operations manager was 168, calcium 8.7, phosphorus 2.7, magnesium 2.0, total bilirubin 0.6, AST 16, ALT 20, alkaline phosphatase 67, total protein 5.9, albumin 2.8. Lipids for psychiatric admission, triglycerides 123, cholesterol 161, LDL 97, HDL 40. B12 normal at 581, vitamin D absolutely low at 12.8, folate 15.9. TSH slightly elevated at 4.529. COVID-19 serology was negative on 03/04. REASON FOR PSYCHIATRIC ADMISSION: At the end of February is as follows; a 65-year-old male transferred from [facility]. The patient was admitted to [facility] on 02/26, the patient had been brought in reportedly after EMS found him wandering down the street in the neighbor's yard. The patient was noted to be confused about the events, did not want to go to the hospital, complained of hand pain. The patient had a 2-month history of progressive confusion, had been living alone. HOSPITAL COURSE: The patient was admitted to the [facility] Unit. [address] [address] DISCHARGE SUMMARY Name: STEVEN MARTEL Room #: 362-P DIS IN M.R.#: [id number] Admission: 03/04/21 Attend Phys: Feroz Lopez, Discharge: 03/27/21 Date of : 53 Report #: [id number] The patient has had a challenging course as initially there was no DPOA documentation and patient was unwilling and unable to execute DPOA eventually for his son, Steven Wan, being his DPOA. In the last week or so, secondary social studies teacher did sign out quite a few long-term care referral, patient had not been accepted at any facilities. This was certainly a challenging case from the placement standpoint. His behavior had not been terrible. We had titrated him up to around 200 mg 3 times a day of Seroquel. When he started to become sick with a diagnosis of C. difficile infection, I cut back the Seroquel down to 75 mg 3 times a day and I have advised the hospitalist not to resume it until he is more medically stable because of its effects on the GI tract and hyperglycemia. At the time of discharge, the patient was not suicidal or homicidal, oriented to person and generally to the situation. He was not medically stable. PHYSICAL EXAMINATION: VITAL SIGNS: At time of discharge, temperature 36.9, pulse 110, respirations 18, BP 99/65, O2 sat 99%. MUSCULOSKELETAL: In bed, appearing undernourished, in some distress from profuse diarrhea. MENTAL STATUS EXAMINATION: This is a well-developed, ill-appearing male apparently stated age. Attention limited. Concentration limited. Speech intermittently spontaneous, soft. Thought process linear, very limited. Thought content, relative poverty of thought. Denied SI, HI. Denied auditory, visual, or tactile hallucinations. No helplessness, no hopelessness. Memory, known to be impaired, not formally tested. Insight is impaired, judgment is impaired. Fund of knowledge below average. Prognosis for this patient is quite guarded due to early dementia. The patient has acute Clostridium difficile infection, need for long-term care. Greater than 40 minutes was spent on discharge activities today. He was a full code on our unit as well. DO YURI Gonzalez/DAWSON/GLADYS <ELECTRONICALLY SIGNED> By: Feroz Lopez DO 03/28/21 [id number] Feroz Lopez DO /nt
== END 2021-03-27 14:37 | disposition short-term general hospital (02) | DRG 56 ==
LOC: SBH → 3W 03-27 14:25
PROVIDERS: Internal Medicine; Nurse Practitioner Family; ADMIT Psychiatry & Neurology Psychiatry; ATTEND Psychiatry & Neurology Psychiatry
DX: G30.9 Alzheimer's disease, unspecified (principal); F01.51 Vascular dementia, unspecified severity, with behavioral disturbance; G93.41 Metabolic encephalopathy; A04.72 Enterocolitis due to Clostridium difficile, not specified as recurrent; E46 Unspecified protein-calorie malnutrition; F02.81 Dementia in other diseases classified elsewhere, unspecified severity, with behavioral disturbance; F29 Unspecified psychosis not due to a substance or known physiological condition; E11.9 Type 2 diabetes mellitus without complications; I10 Essential (primary) hypertension; E53.8 Deficiency of other specified B group vitamins; D64.9 Anemia, unspecified; E55.9 Vitamin D deficiency, unspecified; G31.83 Neurocognitive disorder with Lewy bodies; Z68.21 Body mass index [BMI] 21.0-21.9, adult
CPT/HCPCS: 10880

== ENCOUNTER 2021-03-04 17:58 | Emergency (ER) | payer OTHER ==
[~2021-03-04] VITALS: Ht 177.8 cm; Wt 81.7 kg
[2021-03-04 18:47] VITALS: BP 111/69
[2021-03-04] MEDS ORDERED: CARBIDOPA-LEVO1 EA10 PO (20:48)
[2021-03-04] MEDS ORDERED: LANTUS100 UNIT/M SUBQ (20:50)
[2021-03-04] MEDS ORDERED: HUMALOG100 UNIT/1 SUBQ (20:51)
[2021-03-04] MEDS ORDERED: SEROQUEL 25 MG25 M1 PO (20:52)
== END 2021-03-04 18:49 ==
LOC: ER 17:58
DX: R41.82 Altered mental status, unspecified (principal); Z20.822 Contact with and (suspected) exposure to COVID-19; I10 Essential (primary) hypertension

== ENCOUNTER 2021-03-27 13:16 | Inpatient (IN) | payer OTHER ==
[~2021-03-27] VITALS: Ht 180.3 cm; Wt 56.8 kg
[~2021-03-27 13:16] MED LIST: CARBIDOPA-LEVO1 EA10 PO; HUMALOG100 UNIT/1 SUBQ; LANTUS100 UNIT/M SUBQ; SEROQUEL 25 MG25 M1 PO
[2021-03-27 17:05] VITALS: BP 89/598
[2021-03-27 19:09] VITALS: BP 93/54
--- NOTE | 2021-03-27 19:21 | NUR ---
PATIENT ADMIT TO UNIT FROM 5S. ALERT NOT ANSWER ANY QUESTIONS. ONE LOOSE STOOL. BP LOW 89/59 GOT 1L NS BOLUS. REFUSED TO HAVE DINER. BED ARLRM ON. WILL KEEP MONITOR,
[2021-03-27 20:05] VITALS: BP 90/57
[2021-03-27 23:01] VITALS: BP 92/57
--- NOTE | 2021-03-27 23:15 | NUR ---
Pt. ate few bites of his turkey sandwich and mashed potatoes ,roll with butter and a cookie.Incontinent of loose bm then another one after he got cleaned up. Z guard applied to his buttocks. Cont. on isolation for c diff. External cath placed. Foam dressing applied to skin tear below right knee. Bed alarm on.
--- NOTE | 2021-03-28 01:33 | NUR ---
ASSUMED CARE OF PT, ATTEMPTED TO GIVE PO VANCO , PT REFUSD AND COVERD MOUTH, MEDICATION PLACE IN [place] , PT CONITNUE TO REFUSE , SEPARATOR INSERTER DOT NOTIFED, WILL RE- ATTEMPT AT 0300.
--- NOTE | 2021-03-28 01:35 | NUR ---
PT INCONITNENT OF URINE AND LOOSE STOOL, POONAM AREA REDDEND , BARRIER CREME APPLIED. PT ORIENTED TO SELF ONLY, PT TALKING AND RAMBLING , WITH NO ONE IN THE ROOM, BED ALARM ON FOR SAFETY. FREQ ROUNDING DUE PT CONFUSION AND IMPULSIVE BEHAVIOR.
[2021-03-28 05:15] VITALS: BP 96/66
[2021-03-28 05:58] LABS: ABSOLUTE NEUTROPHILS 9.7 thou/uL (1.4-8.2); BASOPHILS 0.2 % (0.0-2.0); EOSINOPHILS 0.5 % (0.0-3.0); HEMATOCRIT 34.7 % (42.0-52.0); HEMOGLOBIN 11.8 gm/dL (14.0-18.0); LYMPHOCYTES 9.1 % (24.0-44.0); MCH 30.1 pg (26.0-34.0); MCHC 33.9 g/dL (28.0-37.0); MCV 88.9 fL (80.0-100.0); MONOCYTES 8.4 % (1.0-8.0); PLATELET COUNT 179 thou/uL (150-400); POLYS 81.8 % (36.0-66.0); RDW 14.3 % (10.5-14.5); WBC 11.9 thou/uL (4.0-11.0)
[2021-03-28 06:32] LABS: ALBUMIN 1.6 g/dL (3.4-5.0); CALCIUM 8.6 mg/dL (8.5-10.1); CREATININE 0.8 mg/dL (0.7-1.3); POTASSIUM 3.6 mmol/L (3.5-5.1); TOTAL BILIRUBIN 0.3 mg/dL (0.2-1.0); TOTAL PROTEIN 4.9 g/dL (6.4-8.2)
[2021-03-28 08:24] VITALS: BP 91/64
--- NOTE | 2021-03-28 14:57 | NUR ---
[facility] PER CHART REVIEW PT'S DTR GAGAN AND SON KANDY ARE INVOLVED IN PT'S CARE. KANDY PROVIDED , [facility], WITH DPOA. [facility] HAS BEEN IN THE PROCESS OF FINDING LTC FACILITIES FOR PT. THE PLAN AT [facility] IS FOR THE PT TO RTRN TO .
[2021-03-28 15:13] VITALS: BP 107/66
--- NOTE | 2021-03-28 17:32 | NUR ---
RN ASSUMED PT'S CARE AT 1100AM, PT IS CONFUSED , PT CAN FOLLOW SOME COMMANDS, PT STILL HAS DIARRHEA, PT IS INCONITENT OF URINE AND STOOL, PT IS ON ISLATION FOR C-DIFF, PT IS CONTINUING NS @80ML/HR, PT'S POONAM-AREA IS RED , BARRIER CREAM HAS ALLPY TO RED SKIN, PT NEEDS HELP ADL AND MEAL TIME. PT'S VS ARE STABLE BY THIS TIME.
[2021-03-28 19:45] VITALS: BP 119/70
--- NOTE | 2021-03-28 21:25 | NUR ---
CONTINUES TO GET OUT OF BED APPROX EVERY 10-20 MINUTES. HE IS VERY QUICK AND HEASDS TOWARD THE DOOR. BED ALARM SET, REMINDED PT THAT HE NEEDS TO STAY IN BED. HE IS UNABLE TO UNDERSTAND DIRECTIONS, OR REMEMBER DIRECTIVES.
--- NOTE | 2021-03-28 23:40 | NUR ---
pt out of bed frequently. unable to keep pt calm. spoke with marianne. she ordered geodon for patients anxious/ manic behavior.
--- NOTE | 2021-03-29 02:33 | NUR ---
PT HAS BEEN RESTING SINCE GEODON GIVEN AND THEN GIVEN A SNACK. HE IS ABLE TO REST WITH HIS EYES CLOSED. CAREPLAN REVIEWED.
[2021-03-29 06:16] VITALS: BP 95/51
[2021-03-29 07:50] VITALS: BP 93/57
[2021-03-29 11:08] VITALS: BP 90/59
[2021-03-29 12:43] LABS: HEMATOCRIT 33.5 % (42.0-52.0); HEMOGLOBIN 11.4 gm/dL (14.0-18.0); MCH 30.3 pg (26.0-34.0); MCHC 34.1 g/dL (28.0-37.0); MCV 88.8 fL (80.0-100.0); RBC 3.77 mil/uL (4.50-6.00); RDW 14.4 % (10.5-14.5); WBC 9.8 thou/uL (4.0-11.0)
[2021-03-29 12:51] LABS: CALCIUM 8.7 mg/dL (8.5-10.1); CREATININE 0.7 mg/dL (0.7-1.3); MAGNESIUM 1.9 mg/dL (1.8-2.4); POTASSIUM 3.6 mmol/L (3.5-5.1)
[2021-03-29 14:34] VITALS: BP 91/59
[2021-03-29 16:30] VITALS: BP 90/58
--- NOTE | 2021-03-29 17:27 | NUR ---
RN ASSUMED PT'S CARE AT 0700AM, PT WAS SLEEPING UNTILL 1200PM, PT REFUSED TO EAT LUNCH , PT STILL IS CONFUSED, BUT PT CAN FOLLOW SOME COMMANDS, RN HAS REPORTED TO HOSPITAL DR ABOUT PT'S DIARRHEA DOES NOT GET IMPROVED, NEW ORDER LAB AND STARTS IV ABX TODAY, RN HAS CALLED PSYCHIATRY DR TO REPORT PT WAS VERY AGITATION LAST NIGHT , NEW ORDER RECEIVED, PT'S MEDICATIONS HAVE SOME CHANGED, PT EATS SOME DINNER AND DRINK WATER WITH ASSIST, PT GETS UP TO BATH ROOM WITH ASSIST, PT'S VS ARE STABLE BY THIS TIME, RN WILL REPORT TO NEXT SHIFT TO KEEP EYE ON PT.
[2021-03-29 20:09] VITALS: BP 121/57
[2021-03-30 05:10] VITALS: BP 137/50
[2021-03-30 05:49] LABS: HEMATOCRIT 33.2 % (42.0-52.0); HEMOGLOBIN 11.3 gm/dL (14.0-18.0); MCHC 33.9 g/dL (28.0-37.0); MCV 88.6 fL (80.0-100.0); RBC 3.75 mil/uL (4.50-6.00); WBC 11.2 thou/uL (4.0-11.0)
[2021-03-30 05:57] LABS: CALCIUM 8.6 mg/dL (8.5-10.1); CREATININE 0.6 mg/dL (0.7-1.3); MAGNESIUM 1.8 mg/dL (1.8-2.4); POTASSIUM 3.4 mmol/L (3.5-5.1)
[2021-03-30 07:36] VITALS: BP 99/54
[2021-03-30 16:03] VITALS: BP 98/58
--- NOTE | 2021-03-30 18:52 | NUR ---
RN ASSUMED PT'S CARE AT 0700AM, PT IS CONFUSED AND PT IS IMPULSIVE SOMETIMES, PT IS CONTINUING PO AND IV ABX , PT IS ISOLATION FOR C-DIFF, PT STILL HAS DIARRHEA, WE HELP PT AT MEAL TIME, PT'S VS ARE STABLE, RN WILL REPORT TO NEXT SHIFT TO KEEP EYE ON PT.
[2021-03-30 19:46] VITALS: BP 100/60
--- NOTE | 2021-03-31 03:43 | NUR ---
PROGRESS PT ALERT TO SELF. IMPULSIVE AND GETS OOB WITHOUT ASSISTANCE. GAIT UNSTEADY. IV TO RF INFUSING NS@100CC/HR WITHOUT DIFFICULTY. ACCUCHECKS AND SSI CONTINUE. REMAINS INCONTINENT OF BOWEL AND BLADDER. HAD ONE SMALL BROWN JELLY LIKE STOOL. VITAL SIGNS STABLE, ON ROOM AIR. BUTTOCKS REMAIN RED BUT INTACT EXCORIATED FROM FREQUENT STOOLS, ZGUARD APPLIED. WBC 11.2, POTASSIUM 3.4 BMP SCHEDULED FOR THIS AM. CONTINUE POC.
[2021-03-31 04:00] VITALS: BP 85/52
[2021-03-31 04:55] LABS: CALCIUM 8.6 mg/dL (8.5-10.1); CREATININE 0.7 mg/dL (0.7-1.3); POTASSIUM 3.1 mmol/L (3.5-5.1)
[2021-03-31 09:58] LABS: MAGNESIUM 1.9 mg/dL (1.8-2.4)
--- NOTE | 2021-03-31 12:22 | EKG ---
[address] [place] [address] ELECTROCARDIOGRAM REPORT Name: KANDY MARTEL Room #: 362-P ADM IN M.R.#: [id number] Admission: 03/27/21 Attend Phys: Donta Owens MD Discharge: Date of : 53 Report #: [id number] [facility] Test Date: 2021-03-31 Test Time: 11:54:03 Pat Name: KANDY MARTEL Department: Room: 362 P Gender: M Supervisor Channel Process: ESTEFANI : 1955 Requested By: Shabbir Lopez Order Number: [id number] MD: Senthil Kraus Measurements Intervals [place] Rate: 84 P: 60 NC: 127 QRS: 4 QRSD: 86 T: 58 QT: 364 QTc: 431 Interpretive Statements Sinus rhythm Low voltage, precordial leads No previous ECG available for comparison Electronically Signed On 03-31-2021 12:21:54 CDT by Senthil Kraus [email or web address] <ELECTRONICALLY SIGNED> By: Senthil Kraus MD, [facility] 03/31/21 1221 1154 1154 Senthil Kraus MD, FACC /EPI
--- NOTE | 2021-03-31 14:45 | NUR ---
LARRY reviewed chart and spoke with nursing and attending physician. Pt remains in isolation due to c.diff. Plan is for pt to discharge back to [facility] unit when medically stable. LARRY left voice message for pt's dtrKatie ([phone]) to provide update. LARRY is following to assist as needed with discharge planning.
--- NOTE | 2021-03-31 16:33 | NUR ---
Dr. Lopez forwarded an email from pt's son, jr Steven to LARRY. Pt is no longer on the [facility]. LARRY forwarded the email to LARRY Pete who is following pt at this time.
[2021-03-31 17:32] VITALS: BP 114/77
--- NOTE | 2021-03-31 19:39 | NUR ---
RN ASSUMED PT'S CARE AT 0700-1900PM, PT IS CONFUSED, PT CAN FOLLOW SOME COMMANDS, PT IS IMPULSIVE AT TIME, PT IS CONTINUING IV /PO ABX AND IV FLIUD, PT STILL HAS DIARRHEA , CONTACT IOSLATION IS ON, RN HAS REPROTED TO NEXT SHIFT TO KEEP EYE ON PT.
[2021-03-31 20:12] VITALS: BP 100/70
[2021-04-01 05:25] VITALS: BP 107/71
[2021-04-01 05:37] LABS: HEMATOCRIT 35.2 % (42.0-52.0); HEMOGLOBIN 11.8 gm/dL (14.0-18.0); MCH 29.6 pg (26.0-34.0); MCHC 33.6 g/dL (28.0-37.0); MCV 88.1 fL (80.0-100.0); RBC 3.99 mil/uL (4.50-6.00); RDW 14.4 % (10.5-14.5); WBC 9.6 thou/uL (4.0-11.0)
[2021-04-01 06:03] LABS: ALBUMIN 1.4 g/dL (3.4-5.0); CALCIUM 8.7 mg/dL (8.5-10.1); CREATININE 0.7 mg/dL (0.7-1.3); MAGNESIUM 1.8 mg/dL (1.8-2.4); POTASSIUM 3.6 mmol/L (3.5-5.1); TOTAL BILIRUBIN 0.3 mg/dL (0.2-1.0); TOTAL PROTEIN 4.4 g/dL (6.4-8.2)
--- NOTE | 2021-04-01 08:00 | NUR ---
PROGRESS PT NOT IMPULSIVE PREVIOUS SHIFT SLEPT MOST OF NIGHT VSS, IVF'S INFUSING ORDERED HAD A COUPLE OF LOOSE STOOL, POONAM AREA NOT QUITE RED PREVIOUS SHIFT CONTINUE POC.
[2021-04-01 08:47] VITALS: BP 97/60
[2021-04-01 15:56] VITALS: BP 110/73
--- NOTE | 2021-04-01 16:19 | NUR ---
SW reviewed chart and spoke with nursing and attending physician. Pt remains in isolation due to c.diff. SW notified that pt may not be able to return to [facility] due to insurance denial for [facility]. Awaiting to clarify from physicians about discharge disposition. LARRY followed up today on referrals to facilities that had been contacted while pt was on [facility] unit: [facility]: LARRY left voice message for admissions dept [facility]: SW left message with Lara to provide to ur coordinator tomorrow. [facility]: Faxed referral and spoke to Nazia with [facility] to review for her facilities [facility]: Faxed referral and spoke with Estella Akins in admissions [facility]: Left voice message for admissions dept Ida Kevin : Faxed referral and spoke with Nora in admissions [facility]: spoke with Filomena, who states pt's family is unable to afford cost of memory care as private pay. LARRY spoke with pt's son, Steven Amaya, via phone to provide update. Pt's son states that he and his sister have been calling facilities to see about options. Pt may be able to pay privately for several months and then may need to apply for Medicaid. Pt's son requests clarification about discharge disposition: [facility] v. placement. SW explained that physicians will discuss. Pt's son requests referrals to [facility] and [facility]. [facility]: Faxed referral and spoke with Royer in admissions [facility]: Faxed referral and spoke with Lizbeth in admissions LARRY is following to assist as needed with discharge planning.
--- NOTE | 2021-04-01 17:50 | NUR ---
RN ASSUMED PT'S CARE AT 0700AM, PT IS CONFUSED , PT CAN FOLLOW SOME COMMANDS, PT HAS ORDER HALOPERIDOL 0.5MG IV Q8HR, PT DOES NOT HAVE IMPULSIVE AT AC SHIFT, BUT PT STILL HAS DIARRHEA, PT IS CONTINUING IV FLUID AND IV /PO ABX, PT NEEDS HELP ALL MEALS AND ADL, PT IS INCONITNENT OF URINE AND STOOL , BARRIER CREAM APPLY TO PER-AREA AND BUTTOCKS AFTER EACH TIME CLEAN PT.
[2021-04-01 20:48] VITALS: BP 115/75
[2021-04-02 04:02] LABS: CALCIUM 8.7 mg/dL (8.5-10.1); CREATININE 0.6 mg/dL (0.7-1.3); MAGNESIUM 1.9 mg/dL (1.8-2.4); POTASSIUM 3.9 mmol/L (3.5-5.1)
[2021-04-02 05:00] VITALS: BP 109/69
[2021-04-02 08:48] VITALS: BP 111/96
[2021-04-02 15:34] VITALS: BP 128/89
--- NOTE | 2021-04-02 15:51 | NUR ---
LARRY reviewed chart and spoke with nursing and attending physician. Pt is in isolation for c.diff. Pt will not be returning to [facility] unit per psych. LARRY received call from Nora at [facility] and Estella Akins at [facility], who both state they are unable to accept pt. LARRY left voice message for quality improvement coordinator (rn) at [facility]. LARRY left voice message for admissions dept at [facility]. LARRY received call from ALEX at [facility], who requested clinical info from [facility] unit stay. LARRY faxed requested info. LARRY contacted [facility] liaison who is reviewing info for [facility] and [facility] and [facility]. LARRY spoke with Elba at [facility], who requests additional info to be faxed. LARRY updated attending physician. LARRY is following to assist as needed with discharge planning.
[2021-04-02 20:51] VITALS: BP 108/73
[2021-04-03 08:22] VITALS: BP 117/74
--- NOTE | 2021-04-03 09:43 | NUR ---
Assess due to length of stay. Pt required discharge from [facility] and admit to acute unit due to cdiff and need for isolation. Hx dementia, DM, HTN. Was eating 100% of meals and has dropped slightly to 50-80% likely with persistant loose stools. On IVF to maintain hydration, BG controlled. Continue carb control diet with glucerna shakes. Wt about 6 lb below usual. Low nutrition risk with appropriate nutrition interventions in place.
--- NOTE | 2021-04-03 16:06 | NUR ---
LARRY reviewed chart and spoke with nursing and attending physician. Farm Laborer consulted. Pt remains in isolation for c.diff. LARRY faxed DPOA ppwk and SS# to [place] for review per their request. LARRY spoke with Lizbeth at [facility], who state they are unable to accept pt due to his level of care needs. LARRY contacted [facility] post-acute liaison to follow up and see if any of their facilities are able to accept pt. Awaiting input at this time. LARRY spoke with pt's son, Steven, via phone to provide update. LARRY is following to assist as needed with discharge planning.
[2021-04-03 16:55] VITALS: BP 106/71
--- NOTE | 2021-04-03 18:10 | NUR ---
RN ASSUMED PT'S CARE AT 0700AM, PT IS CONFUSED AND PT CAN FOLLOW MOST OF COMMANDS, PT WAS SLEEPING UNTILL 1200PM, PT'S HALOPERIOL PO DOSE WAS HOLD AT 0900AM, PT STILL HAS DIARRHEA ( LOOSE STOOL )3-4 TIMES, PT NEEDS ENCOURAGE TO EATS AND DRINKING, PT IS INCONITENT URINE AND STOOL, BARRIER CREAM HAS APPLY TO PT'S RED AREAS.
--- NOTE | 2021-04-03 18:19 | NUR ---
PT IS CONTINUING NS @126ML/HR, ,PT'S VS ARE SRABLE AT THIS TIME.
[2021-04-03 19:35] VITALS: BP 116/71
--- NOTE | 2021-04-04 03:27 | NUR ---
Patient making progress towards outcome goals. Incontinent of bowel and bladder. Oriented top erson only. Impulsive when awake, high fall risks, fall preacutions in place. Vital signs stable. Buttocks red from incontinence-z guard applied.
[2021-04-04 06:08] LABS: HEMATOCRIT 36.6 % (42.0-52.0); HEMOGLOBIN 12.2 gm/dL (14.0-18.0); MCH 29.5 pg (26.0-34.0); MCHC 33.5 g/dL (28.0-37.0); MCV 88.2 fL (80.0-100.0); RBC 4.15 mil/uL (4.50-6.00); RDW 14.5 % (10.5-14.5); WBC 8.6 thou/uL (4.0-11.0)
[2021-04-04 06:24] LABS: CALCIUM 8.9 mg/dL (8.5-10.1); CREATININE 0.6 mg/dL (0.7-1.3); MAGNESIUM 2.1 mg/dL (1.8-2.4); POTASSIUM 3.7 mmol/L (3.5-5.1)
[2021-04-04 07:48] VITALS: BP 111/68
[2021-04-04 15:30] VITALS: BP 114/62
--- NOTE | 2021-04-04 16:11 | NUR ---
LARRY reviewed chart and spoke with nursing and attending physician. Pt remains in isolation for c.diff. LARRY received call from [facility] post-acute liaison, who states that [facility] may be able to accept pt as LTC. They are not in-network with pt's insurance for skilled. LARRY left message for Elba, web coordinator at [facility], who is still reviewing pt's info. LARRY left voice message for pt's son, Steven, to provide update. Encouraged Steven and family to review [facility] and [facility] over the weekend. LARRY is following to assist as needed with discharge planning.
[2021-04-04 16:54] VITALS: BP 108/70
--- NOTE | 2021-04-04 18:45 | NUR ---
RN ASSUMED PT'S CARE AT 0700AM, PT IS CONFUSED AND IMPULSIVE AT TIME, PSYCHIATRY HAS SEEING PT, NEW ORDER RECEIVED TO ADJUST PT'S SOME MEDICATIONS, PT STILL HAS DIARRHEA , INCONITNENT OF URINE AND STOOL, PT;S PER-AREA ANE BUTTUCKS ARE RED , BARRIER CREAM HAS ALLY .RN WILL REPORT TO NEXT SHIFT TO KEEP EYE ON PT.
[2021-04-04 20:22] VITALS: BP 106/66
--- NOTE | 2021-04-04 23:05 | NUR ---
PROGRESS PT CALM AND COOPERATIVE THIS EVENING. DID PULL OUT IV BUT WAS AGREEABLE TO RESTART. RESTARTED IN LEFT FOREARM WITHOUT DIFFICULTY. IVF'S INFUSING ORDERED. OFFERED PUDDING AND JUICE BUT HE WOULD ONLY TAKE 2 BITES AND A FEW SIPS. STILL HAVING FREQUENT STOOLS THAT ARE FOUL SMELLING, BROWN AND SEEDY. PERIAREA RED AND BUTTOCKS PEELING FROM FREQUENT STOOLS. CLEANSED BARRIER CREAM AND ZYGUARD APPLIED. PT REMAINS INCONTINENT OF BOWEL AND BLADDER. PT REPOSITIONS SELF IN BED. CONTINUE TO MONITOR.
[2021-04-05 04:28] VITALS: BP 102/67
[2021-04-05 08:00] VITALS: BP 119/73
--- NOTE | 2021-04-05 12:46 | NUR ---
ASSUMED PT CARE AT SHIFT CHANGE, PT SLEEPY THIS MORNING, ABLE TO BE WOKE BY VOICE. PT FULLY AWAKE BY LUNCH TIME, ABLE TO SELF FEED/DRINK. NO CONCERNS VOCALIZED BY PT. WILL FOLLOW POC AT THIS TIME. BUTTOCKS CONTINUE REDNESS, BARRIER CREAM APPLIED. PT IS INCONTINENT OF BOWEL/BLADDER AT THIS TIME.
[2021-04-05 16:27] VITALS: BP 86/60
[2021-04-05 20:19] VITALS: BP 91/61
[2021-04-06 04:08] VITALS: BP 99/60
[2021-04-06 05:58] LABS: ABSOLUTE NEUTROPHILS 4.8 thou/uL (1.4-8.2); BASOPHILS 0.6 % (0.0-2.0); EOSINOPHILS 1.9 % (0.0-3.0); HEMATOCRIT 36.6 % (42.0-52.0); HEMOGLOBIN 12.1 gm/dL (14.0-18.0); LYMPHOCYTES 24.1 % (24.0-44.0); MCH 29.7 pg (26.0-34.0); MCHC 32.9 g/dL (28.0-37.0); MCV 90.1 fL (80.0-100.0); MONOCYTES 7.9 % (1.0-8.0); PLATELET COUNT 277 thou/uL (150-400); POLYS 65.5 % (36.0-66.0); RBC 4.06 mil/uL (4.50-6.00); RDW 14.8 % (10.5-14.5); WBC 7.3 thou/uL (4.0-11.0)
[2021-04-06 06:06] LABS: ALBUMIN 1.8 g/dL (3.4-5.0); CALCIUM 8.6 mg/dL (8.5-10.1); CREATININE 0.8 mg/dL (0.7-1.3); MAGNESIUM 2.1 mg/dL (1.8-2.4); PHOSPHORUS 2.8 mg/dL (2.5-4.9); TOTAL BILIRUBIN 0.3 mg/dL (0.2-1.0); TOTAL PROTEIN 4.9 g/dL (6.4-8.2)
--- NOTE | 2021-04-06 07:09 | NUR ---
PROGRESS PT CALM AND COOPERATIVE LAST NIGHT, TOOK MEDS WITHOUT DIFFICULTY. SLEPT MOST OF SHIFT. SCANT SMEAR OF BM NO LOOSE STOOLS. DINNER TRAY LEFT AT BEDSIDE AND PT ATE 90% WITH HIS FINGERS. DAY SHIFT RN TO INQUIRE ABOUT FINGER FOODS. CONTINUE POC.
[2021-04-06 08:20] VITALS: BP 125/72
--- NOTE | 2021-04-06 11:11 | NUR ---
ASSUMED PT CARE AT SHIFT CHANGE. ONCE PT WOKE IN MORNING, INCREASED TALKING VS YESTERDAY. HE HAD INCREASED APPETITE FOR BREAKFAST, DRANK SUPPLEMENT WITHOUT ISSUE. PT SWALLOWS PILLS WITH THIN LIQUIDS. PT CONTINUES TO BE IMPULSIVE WITH POSITION CHANGE, IS STEADY ON FEET.
[2021-04-06 15:28] VITALS: BP 109/63
[2021-04-06 19:18] VITALS: BP 120/72
--- NOTE | 2021-04-07 02:09 | NUR ---
PT HAS MULTIPLE BOUTS OF URINE INCONTINENCE. FOLLOW POC WITH ISOLATION PRECAUTIONS. COLLECTED STOOL SAMPLE FOR CDIFF RULE OUT. PT UP WITH X1 ASSIST. PT STILL MAKES NO SENSE IN HIS SENTENCES. AT 0100 PT REMOVED PIV. WILL ATTEMPT ANOTHER SITE. HOURLY ROUNDING. PT POSSIBLE DC TO 5S ON 04/07 IF CDIFF NEGATIVE.
[2021-04-07 04:10] VITALS: BP 121/78
[2021-04-07 07:28] VITALS: BP 125/75
[2021-04-07 07:32] LABS: ABSOLUTE NEUTROPHILS 3.6 thou/uL (1.4-8.2); BASOPHILS 1.3 % (0.0-2.0); EOSINOPHILS 2.7 % (0.0-3.0); HEMATOCRIT 38.2 % (42.0-52.0); HEMOGLOBIN 12.7 gm/dL (14.0-18.0); LYMPHOCYTES 27.7 % (24.0-44.0); MCH 29.7 pg (26.0-34.0); MCHC 33.2 g/dL (28.0-37.0); MCV 89.3 fL (80.0-100.0); MONOCYTES 8.5 % (1.0-8.0); PLATELET COUNT 266 thou/uL (150-400); POLYS 59.8 % (36.0-66.0); RBC 4.27 mil/uL (4.50-6.00); RDW 14.6 % (10.5-14.5)
[2021-04-07 07:59] LABS: CALCIUM 9.1 mg/dL (8.5-10.1); CREATININE 0.6 mg/dL (0.7-1.3); MAGNESIUM 2.2 mg/dL (1.8-2.4); PHOSPHORUS 2.9 mg/dL (2.5-4.9); POTASSIUM 3.9 mmol/L (3.5-5.1)
[2021-04-07 15:37] VITALS: BP 84/56
--- NOTE | 2021-04-07 15:45 | NUR ---
LARRY reviewed chart and spoke with nursing and attending physician. Pt remains in isolation due to c.diff. Pt had repeat c.diff test collected this morning. Awaiting results at this time. LARRY spoke with Elba, in admissions at [facility], who states she has spoken with pt's son earlier today. Elba requested updated info to be faxed for review. Per Elba, [facility] will require a Level 2 assessment due to pt's recent inpt [facility] stay. Info faxed. LARRY spoke with pt's son, Steevn, via phone to provide update. Pt's son states he called pt's insurance and was told pt has 100 covered skilled days available in a SNF. LARRY explained that skilled days are based on pt's medical/therapy needs and that pt must be showing signs of progress and need for skilled services. Pt's son verbalized understanding and requests referrals to be faxed to [facility] and [facility] for review. SW to fax referrals to requested SNFs. LARRY is following to assist as needed with discharge planning.
[2021-04-07 20:24] VITALS: BP 92/64
[2021-04-07 22:06] LABS: GLYCOHEMOGLOBIN (HGB A1C) 8.5 % (4.8-5.6)
[2021-04-08 03:12] VITALS: BP 108/72
--- NOTE | 2021-04-08 04:08 | NUR ---
Patient making slow progress towards outcome goals. Appetite poor. No difficulty swallowing. High fall risk due to confusion, near miss fall. Fall precautions in place. Incontinent of bowel and bladder. Vital signs stable. Await placement. Special contact isolation for Cdiff.
[2021-04-08 05:32] LABS: HEMATOCRIT 38.5 % (42.0-52.0); HEMOGLOBIN 12.7 gm/dL (14.0-18.0); MCH 29.8 pg (26.0-34.0); MCV 90.3 fL (80.0-100.0); RBC 4.27 mil/uL (4.50-6.00); RDW 15.1 % (10.5-14.5); WBC 8.1 thou/uL (4.0-11.0)
[2021-04-08 05:50] LABS: CALCIUM 9.6 mg/dL (8.5-10.1); CREATININE 0.8 mg/dL (0.7-1.3); POTASSIUM 4.2 mmol/L (3.5-5.1)
[2021-04-08 07:52] VITALS: BP 98/66
--- NOTE | 2021-04-08 11:29 | NUR ---
Pt upgraded to severe nutrition risk r/t sig weight loss, poor intake and variable mentation causing fluctuations of interest in foods/fluids.
[2021-04-08 15:49] VITALS: BP 117/70
--- NOTE | 2021-04-08 17:02 | NUR ---
LARRY reviewed chart and spoke with nursing and attending physician. LARRY received call from Shelbi at [facility] stating they do not have any memory care beds available. LARRY spoke with Eloise at [facility], who states they are not able to accept pt. LARRY left messages for Stacy at [facility] and Elba at [facility]. Awaiting input from facilities at this time. LARRY spoke with pt's son, Steven, via phone. Steven states that [facility] CLOCK [facility]SEMBL[facility] had called to discuss possible peg tube placement. Pt's son states pt might eat if he has assistance. Nursing assisted pt with lunch. Pt's son states he will look at additional facilities if needed. LARRY is following to assist as needed with discharge planning.
[2021-04-08 19:57] VITALS: BP 99/61
[2021-04-09 04:55] VITALS: BP 106/72
--- NOTE | 2021-04-09 05:53 | NUR ---
PT MAKING PROGRESS TOWARDS GOALS. INCONTINENT OF BM OVERNIGHT BUT STOOLS WERE BROWN AND FORMED.
[2021-04-09 08:57] VITALS: BP 89/64
--- NOTE | 2021-04-09 09:00 | NUR ---
LARRY spoke with Elba, in admissions at [facility]. Faxed clinical/therapy updates. Per Elba, the clinical team is going to discuss pt at their 0915 meeting this morning. Elba to notify LARRY if they are able to accept pt. LARRY is following to assist as needed with discharge planning.
[2021-04-09 16:31] VITALS: BP 83/60
--- NOTE | 2021-04-09 17:27 | NUR ---
ASSUMED PT CARE AT SHIFT CHANGE, PT ALERT TO SELF. APPEPTITE STEADY. PT DOES BETTER WITH SIMPLE FINGER FOODS. PT IS OK WITH GAIT BELT FOR SAFETY WHILE AMBULATING. STOOLS SOLID. INCONINENT OF URINE. PT HAS WORD SEARCH BOOK AND PEN AT BEDSIDE. PT IS CONFUSED, BUT DOES FOLLOW COMMAND/EASILY REDIRECTED.
[2021-04-09 19:28] VITALS: BP 96/63
[2021-04-10 05:14] LABS: CALCIUM 9.3 mg/dL (8.5-10.1); CREATININE 0.8 mg/dL (0.7-1.3); POTASSIUM 4.1 mmol/L (3.5-5.1)
[2021-04-10 05:21] LABS: HEMATOCRIT 35.8 % (42.0-52.0); HEMOGLOBIN 12.1 gm/dL (14.0-18.0); MCH 30.2 pg (26.0-34.0); MCHC 33.8 g/dL (28.0-37.0); MCV 89.6 fL (80.0-100.0); WBC 5.4 thou/uL (4.0-11.0)
[2021-04-10 07:17] VITALS: BP 93/65
--- NOTE | 2021-04-10 07:47 | NUR ---
ASSUMED PT CARE AT SHIFT CHANGE, PT SLEPT WELL LAST NIGHT. PT ALERT TO SELF THIS MORNING. NO COMPLAINTS, PT CONTENT.
--- NOTE | 2021-04-10 08:24 | NUR ---
PT MAKING SLOW PROGRESS TOWARD GOALS. PT SLEPT MUCH OF THE NIGHT. UP TO TOILET ONCE TO VOID. WAS NOT INCONTINENT. NO BM OVERNIGHT. GAIT FAIR, STAND BY ASSIST PROVIDED.
--- NOTE | 2021-04-10 13:06 | NUR ---
LARRY reviewed chart and spoke with nursing and attending physician. Discussed case also with Broadcast Traffic Coordinator, Dr. Fontanez, who states that [facility] is able to accept pt. LARRY spoke with Elba, marketing information coordinator, who states that she will still need to do an onsite evaluation this afternoon. Elba states that they are needing a level 2 assessment. LARRY faxed [id number] form yesterday. LARRY discussed with [facility] psychiatrist, who states that there is still a waiver through [facility] that the nursing facilities are responsibile for the Level 2 assessments. LARRY also discussed with [facility] SW. LARRY spoke with Elba to provide update regarding Level 2 assessment. Elba to discuss with her clinical team. LARRY is following to assist as needed with discharge planning.
[2021-04-10 15:34] VITALS: BP 118/87
--- NOTE | 2021-04-10 17:57 | NUR ---
PT TOOK NAP THIS AFTERNOON. WAS AWAKE FOR LUNCH AND DINNER. PT ABLE TO AMBULATE TO TOILET, URINATED STANDING UP, MOST URINE WENT INTO TOILET. PT CALM AND COOPERATIVE.
[2021-04-10 19:48] VITALS: BP 81/54
[2021-04-10 20:56] VITALS: BP 81/54
--- NOTE | 2021-04-11 03:48 | NUR ---
UPON SHIFT ASSESSMENT, PT AOX1, TO SELF. PT NOTABLY RESTLESS, NOTED TO HAVE INCONGRUENT CONVERSATIONS. PT DENIES PAIN AND SOB WHILE ON ROOM AIR. PT TOLERATING PO INTAKE OF FLUIDS AND 1800 CARB CONTROLLED DIET WITHOUT ISSUE. PT WITHOUT NAUSEA OR EMESIS. PT AMBULATING WITH STANDBY TO MINIMUM ASSISTANCE IN ROOM AND TO BATHROOM, INTERMITTENTLY USING WALKER. PT NOTED TO HAVE INTERMITTENT IMPULSIVITY, NOTED TO BE REDIRECTABLE. THROUGHOUT SHIFT, PT NOTED TO BECOME INCREASINGLY RESTLESS, IMPULSIVE, AND AGGRESSIVE WITH STAFF. PT USING RACIAL SLURS, SAYING 'NIGGER SHIT'. ONCALL PREPARATION PLANT SUPERVISOR NOTIFIED, RECEIVED ORDERS FOR ONETIME IM 5MG HALDOL. PT GIVEN IM HALDOL WITH POSITIVE EFFECT. PT RESTING IN BED WITHOUT INTERRUPTION OR OBSERVATION OF PAIN, DISCOMFORT OR SOB. PT ENCOURAGED TO NOTIFY STAFF FOR ALL NEEDS, CALL LIGHT WITHIN REACH, BED ALARM ON, BED LOCKED IN LOWEST POSITION, FREQUENT MONITORING WILL CONTINUE.
[2021-04-11 04:38] VITALS: BP 112/79
[2021-04-11 08:15] VITALS: BP 92/65
[2021-04-11] MEDS ORDERED: NIASPAN 500 MG500 M1 PO (12:11)
[2021-04-11] MEDS ORDERED: FIRVANQ50 MG/1 ML PO (12:11)
[2021-04-11] MEDS ORDERED: REMERON 30 MG T30 M1 PO (12:11)
[2021-04-11] MEDS ORDERED: TRAZODONE HCL50 MG PO (12:11)
[2021-04-11] MEDS ORDERED: ACIDOPHILUS1 EAC4 PO (12:12)
[2021-04-11] MEDS ORDERED: TRADJENTA5 MG PO (12:12)
[2021-04-11] MEDS ORDERED: POTASSIUM CHLO20 MEQ PO (12:12)
[2021-04-11] MEDS ORDERED: MAGNESIUM400 MG PO (12:12)
[2021-04-11] MEDS ORDERED: LANTUS SUBQ (12:13)
--- NOTE | 2021-04-11 13:46 | NUR ---
REPORT CALLED TO SARA SLATER AT [facility]. NO QUESTIONS OR CONCERNS AT TIME OF TRANSFER. SON CALLED AND MADE AWARE OF TRANSFER.
--- NOTE | 2021-04-11 14:39 | NUR ---
DISCHARGE NOTE: LARRY reviewed chart and spoke with nursing and attending physician. Pt is medically stable for discharge. SW received call from Elba at [facility], who states that after discussing with her clinical team, they have declined pt for admission to his care needs. LARRY discussed with attending physician. Pt was given IM haldol last night. Pt to be discharged to [facility] unit this afternoon. LARRY spoke with both pt's son and dtr via phone to provide update and discuss discharge plan. Pt's dtr has an appt to tour [facility] in [place] on Wednesday, 04/15. LARRY faxed referral to [facility] and left voice message for Lara in admissions. SW also left voice messages again today at [facility] in [facility]. LARRY spoke with pt's son via phone to notify of new room number on [facility]. Pt's son is agreeable with discharge plan. LARRY updated [facility] SWs. Also discussed case with [facility] psychiatrist.
== END 2021-04-11 13:49 | DRG 871 ==
LOC: 3W 13:16
PROVIDERS: Hospitalist; Internal Medicine; Nurse Practitioner; ADMIT Internal Medicine; ATTEND Internal Medicine
DX: A41.9 Sepsis, unspecified organism (principal); G92 Toxic encephalopathy; E43 Unspecified severe protein-calorie malnutrition; A04.72 Enterocolitis due to Clostridium difficile, not specified as recurrent; F03.91 Unspecified dementia, unspecified severity, with behavioral disturbance; F01.51 Vascular dementia, unspecified severity, with behavioral disturbance; F05 Delirium due to known physiological condition; N39.0 Urinary tract infection, site not specified; G82.20 Paraplegia, unspecified; K59.2 Neurogenic bowel, not elsewhere classified; Z68.1 Body mass index [BMI] 19.9 or less, adult; I95.89 Other hypotension; I10 Essential (primary) hypertension; E11.9 Type 2 diabetes mellitus without complications; I95.9 Hypotension, unspecified; Z60.2 Problems related to living alone; D64.9 Anemia, unspecified; N31.9 Neuromuscular dysfunction of bladder, unspecified; R33.9 Retention of urine, unspecified; E55.9 Vitamin D deficiency, unspecified; R63.4 Abnormal weight loss; R53.81 Other malaise; Z79.899 Other long term (current) drug therapy
CPT/HCPCS: 10779; 10879

== ENCOUNTER 2021-04-11 14:48 | Inpatient (IN) | payer OTHER ==
[~2021-04-11] VITALS: Ht 175.3 cm; Wt 67.7 kg
[~2021-04-11 14:48] MED LIST changes: +ACIDOPHILUS1 EAC4 PO; +FIRVANQ50 MG/1 ML PO; +LANTUS SUBQ; +MAGNESIUM400 MG PO; +NIASPAN 500 MG500 M1 PO; +POTASSIUM CHLO20 MEQ PO; +REMERON 30 MG T30 M1 PO; +TRADJENTA5 MG PO; +TRAZODONE HCL50 MG PO
[2021-04-11 15:47] VITALS: BP 103/69
--- NOTE | 2021-04-11 16:38 | NUR ---
4900 PATIENT TRANSFER FROM [facility] C DIFF CLEARED UP AND PATIENT SENT BACK TO [facility]. PATIENT UPON ARRIVING TO UNIT CALM COOPERATIVE. PATIENT ABDOMEN SOFT BOWEL SOUNDS PRESENT PATIENTS LUNGS CLEAR. PATIENT ASKED IF HE COULD LIE DOWN BECAUSE HE WAS TIRED. PATIENT DENIES SI/HI/AH/VH AT PRESENT. I CALLED AND LEFT A MESSAGE FOR HIS DAUGHTER TO CALL US FOR CONSENT TO TREAT PATIENT AND TO GIVE HER THE CODE. WILL CONTINUE TO MONITOR PATIENT FOR SAFETY AND BEHAVIORS.
[2021-04-11 17:04] LABS: CHOLESTEROL 133 mg/dL (<200); HDL CHOLESTEROL 36 mg/dL (>40); LDL CHOLESTEROL 77 mg/dL (<100); TC:HDL 3.7 Ratio (Not establshd); TRIGLYCERIDE 102 mg/dL (<150); VLDL 20 mg/dL (<40)
[2021-04-11 19:11] VITALS: BP 88/57
--- NOTE | 2021-04-11 20:54 | NUR ---
ASSUMED CARE OF PATIENT AT 1900. PATIENT TOOK MEDS WHOLE WITHOUT DIFFICULTY. HS ACCUCHECK 284 AT 2030, RECIEVED 30 UNITS OF LANTUS ORDERED. A&OX SELF. COOPERATIVE THIS EVENING. CURRENTLY LYING DOWN. NO S/S OF DISTRESS.
[2021-04-12 04:07] LABS: GLYCOHEMOGLOBIN (HGB A1C) 8.3 % (4.8-5.6)
[2021-04-12 09:53] VITALS: BP 115/68
--- NOTE | 2021-04-12 11:09 | NUR ---
Sleeping soundly this AM. Alert and orientated to name only. Denies SI/HI. Ambulating with slow, steady gait. Calm, quiet and compliant. Resistant to taking meds. Drank potassium in 8 oz of H20 without difficulty but then was resistant to taking meds crushed in pudding. Took all meds with the exception of Magnesium on third approach. Breath sounds clear. Reg HR auscultated. Color pink with brisk capillary refill and palpable peripheral pulses. No edema noted. Active bowel sounds over soft, flat abdomen. Incontinent of large amt yellow urine per brief with smear of brown stool. Washing hands in stool after urinating, redirected to wash hands in sink. Also wandering t/o unit and found in supply closet. Redirected back out into hallway by Mamta RUIZ. No s/o distress.
--- NOTE | 2021-04-12 11:17 | NUR ---
ORDERS RECIEVED FOR EVAL AND TREAT. UPON ARRIVING ON THE [facility] UNIT, THE Pt WAS UP AMBULATING ON HIS OWN IN THE HALLS WITHOUT DIFFICULTY. Pt APPEARED TO BE SAFE UP AD TARAS WITHOUT DEVICES. WILL DEFER FORMAL P.T. EVAL. SPOKE WITH NURSING AND THEY ARE IN AGREEMENT
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
--- NOTE | 2021-04-12 19:26 | NUR ---
RESUMED PATIENT CARE AT 1900. PATIENT INTRUSIVE WITH OTHER PATIENTS, FOLLOWING OTHER PATIENTS AND THINKING THEY ARE PEOPLE HE KNOWS. PATIENT'S STATEMENTS ARE DELUSIONAL AND NOT RELATED TO WHAT IS GOING ON AROUND HIM OR THE PEOPLE AROUND HIM. CAN BE DIFFICULT TO REDIRECT.
[2021-04-12 20:05] VITALS: BP 149/128
[2021-04-13 06:32] VITALS: BP 125/64
[2021-04-13 08:51] VITALS: BP 104/66
[2021-04-13 09:12] VITALS: BP 104/66
--- NOTE | 2021-04-13 10:03 | NUR ---
1003 RESUMMED CARE FROM OVERNIGHT SHIFT THIS AM, PATIENT ASLEEP ON SOFA IN DAY ROOM SLEEPING. I DID GET PATIENT UP SO HE COULD LOOK BREAKFAST HE TOOK HIS MEDICATION WITHOUT INCIDENCE. PATIENT DENIES SI/HI/AH/VH AT PRESENT PATIENT ALERT TO SELF ONLY. PATIENT CALM COOPERATIVE PATIENTS ABDOMEN SOFT BOWEL SOUNDS PRESENT. PATIENTS LUNGS CLEAR PATIENT HAS MOT DISPLAYED AND BEHAVIORS THIS SHIFT. WILL CONTINUE TO MONITOR PATIENT FOR SAFETY AND BEHAVIORS.
--- NOTE | 2021-04-13 14:35 | NUR ---
At 1400 patient stated she just want to jump off the window and end it all, I suggested watching TV in order to distract her but that didn't help, Hydroxyzine was given. will continue to monitor patient.
[2021-04-13 19:45] VITALS: BP 107/74
--- NOTE | 2021-04-13 21:16 | NUR ---
PATIENT CARE RESUMED AT 1900. PATIENT TOOK MEDS CRUSHED IN ICE CREAM WITHOUT DIFFICULTY. VSS. HS ACCUCHECK 102. NO S/S OF DISTRESS OR DISCOMFORT. HAS BEEN CALM AND COOPERATIVE THIS EVENING. CURRENTLY LYING ON COUCH IN DAY AREA.
[2021-04-14 08:49] VITALS: BP 105/67
[2021-04-14 09:14] VITALS: BP 105/67
--- NOTE | 2021-04-14 09:28 | NUR ---
Recommend adding daily Vit D supplementation for Vit D deficiency.
[2021-04-14 09:56] VITALS: BP 105/67
--- NOTE | 2021-04-14 10:58 | NUR ---
SW reviewed pt's chart from medical and current stay. LARRY saw the equal opportunity director had an issue with locating a signed copy of pt's dpoa document. SW provided an update on the document to the current US and then emailed to her a signed copy of pt's dpoa document. SW team will continue to follow pt during her stay on this unit.
--- NOTE | 2021-04-14 11:40 | NUR ---
1140 RESUMMED CARE FROM OVERNIGHT SHIFT THIS AM, PATIENT IN ROOM LYING QUIET IN BED. PATIENT DID GET UP CAME TO DAY ROOM ATE BREAKFAST AND TOOK MEDICATION WITHOUT INCIDENCE. PATIENT'S ABDOMEN SOFT BOWEL SOUNDS PRESENT PATIENTS LUNGS CLEAR. PATIENT AFFECT FLAT HAS NOT DISPLAYED ANY BEHAVIORS, PATIENT LIKES TO WALK AROUND THE UNIT. PATIENT DENIES SI/HI/AH/VH AT PRESENT PATIENT CAN HAVE A CONVERSATION WITH YOU IF YOU ASK QUESTIONS. WILL CONTINUE TO MONITOR PATIENT FOR SAFETY AND BEHAVIORS.
[2021-04-14 19:15] VITALS: BP 147/114
[2021-04-14 20:00] VITALS: BP 138/60
--- NOTE | 2021-04-15 00:34 | NUR ---
Pt has been alert and cooperative this evening. He took his meds whole with water. He had hs snack. He is [place]. He's gotten up a couple of times after going to bed confused on what time it is but goes back to bed when told it's middle of the night. patient denies pain. no signs of si/hi/avh noted. He was wondering if his daughter Katie was going to come see him tonight but was not agitated when told that visiting hours were over for the evening. Pt in bed at this time resting. bed in low position. Continuing to monitor.
[2021-04-15 08:42] VITALS: BP 103/68
[2021-04-15 09:00] VITALS: BP 122/74
[2021-04-15 09:09] VITALS: BP 94/67
--- NOTE | 2021-04-15 10:31 | NUR ---
1030 RESUMMED CARE FROM OVERNIHT SHIFT THIS AM, PATIENT IN DAY ROOM SITTING QUIET, PATIENT ALERT TO SELF ONLY AND DOES TALK WITH SOME OF THE PATIENTS. PATIENT DENIES SI/HI/AH/VH AT PRESENT, PATIENTS ABDOMEN SOFT BOWEL SOUNDS PRESENT. PATIENTS LUNS CLEAR PATIENT PARTICIPATED IN GROUPS PATIENT LIKE TO WALK AROUND THE UNIT. PATIENT HAS NOT DISPLAYED ANY BEHAVIORS AT PRESENT WILL CONTINUE TO MONITOR PATIENT FOR BEHAVIORS AND SAFETY.
--- NOTE | 2021-04-15 13:18 | NUR ---
LARRY reviewed pt's notes from the medical and saw that [facility] may potentially be accepting pt for LTC. LARRY contacted [facility] and lft a msg with Melissa for admissions. SW team will continue to follow pt during his stay on this unit.
[2021-04-15 19:12] VITALS: BP 105/71
[2021-04-15 19:45] VITALS: BP 105/71
--- NOTE | 2021-04-16 01:04 | NUR ---
PATIENT HAS BEEN UP AND WALKING BACK AND FORTH FROM HIS ROOM TO THE DINING ROOM. HE SAT IN DINING ROOM WITH OTHERS FOR AWHILE. HE HAD HS SNACK. HIS ACCUCHECK WAS 207 AT 1999. PT WAS GIVEN LANTUS 25 UNITS SQ IN RIGHT ARM. PATIENT DENIES PAIN, SI/HI/AVH. PATIENT HAVING DIFFICULTY SLEEPING THIS EVENING AND AWAKENS EASILY. HE WAS GIVEN TYLENOL 650MG PO TO HELP WITH GENERALIZED DISCOMFORT TO HELP HIM RELAX AND SLEEP. PATIENT TOOK HS MEDS WHOLE WITH WATER AND HIS VANCO PO AT MIDNIGHT. PATIENT HAS BEEN COOPERATIVE AND PLEASANT. NO MENTION OF HIS DAUGHTER GAGAN HOLLINGSWORTH. HE DID ASK FOR HELP WHEN HE COULDN'T FIND HIS ROOM. NOT INTRUSIVE TONIGHT GOING INTO OTHER ROOMS. ROUTINE ROUNDS TO ASSESS SAFETY AND STATUS OF PATIENT. PATIENT AMBULATES WITH A STEADY GAIT. CONTINUING TO MONITOR.
--- NOTE | 2021-04-16 10:23 | NUR ---
PATIENT HAS BEEN UP, AND OUT ON THE UNIT, PARTICIPATES IN GROUP THERAPY. PATIENT TOOK ALL MEDICATION WHOLE WITHOUT DIFFICULTY, HE IS EATING MEALS, AND DRINKING FLUID WELL. PATIENT IS CALM, COOPERATIVE WITH CARE. PATIENT DENIES SUICIDAL IDEATION, NOT COGNITIVE ENOUGH TO APPROPRIATELY RESPOND TO FURTHER ASSESSMENT QUESTIONS, HE IS [place]. AFFECT IS FLAT/BLUNTED, MOOD IS CALM. PATIENT IS ALERT TO SELF, FORGETUFL, AND CONFUSED AT TIME, REQUIRES CONSTANT REDIRECTION. NO AGITATION OR AGGRESSIVE BEHVIOR NOTED AT THIS TIME, WILL CONTINUE TO REDIRECT, AND MONITOR FOR SAFETY.
[2021-04-16 10:49] VITALS: BP 86/59
[2021-04-16 19:31] VITALS: BP 98/57
--- NOTE | 2021-04-16 23:55 | NUR ---
ASSESSMENT: PT REMAIN ALERT AND ORIENT TIMES ONE. CONFUSED TO PLACE, SITUATION AND TIME. VERY NIKOLAI, HEARING ADDS NO AVAILABLE. HEARS BETTER OUT OF THE RIGHT EAR. PT WAS SITTING IN THE DAY AREA AT SHIFT CHANGE. COOPERATIVE WITH PILL TAKING, DENIES PAIN. VSS, AFEBRILE. SBA WITH AMBULATION. NOTED THAT PT IS A DNR PER CODE STATUS. SLOW PROGRES TOWARDS DC GOALS. WILL CONTINUE TO MONITOR.
[2021-04-17 08:55] VITALS: BP 92/64
[2021-04-17 09:28] VITALS: BP 102/72
--- NOTE | 2021-04-17 10:18 | NUR ---
1015 RESUMMED CARE FROM OVERNIGHT THIS AM, PATIENT SITTING IN DAY ROOM QUIET. PATIENT ATE BREAKFAST TOOK MEDICATION WITHOUT INCIDENCE, PATIENT DENIES SI/HI/AH/VH AT PRESENT. PATIENTS ABDOMEN SOFT BOWEL SOUNDS PRESENT PATIENTS LUNGS CLEAR. PATIENT PARTICIPATES IN GROUP PATIENT SOMETIMES LIKES TO WALK AROUND THE UNIT. PATIENT HAS NOT DISPLAYED ANY BEHAVIORS THIS SHIFT; WILL CONTINUE TO MONITOR PATIENT FOR SAFETY AND BEHAVIORS.
--- NOTE | 2021-04-17 16:51 | NUR ---
LARRY received a call from Katie today who wanted another referal sent to another facility. LARRY explained that first pt needs finish the process of becoming Medicaid pending. She said she is touring the facility today and received a report that the facility has room for pt. LARRY said that is fine but that Med Assist reports that they have not heard from pt. She said she has not received any phone calls. LARRY reminded her that during pt's last stay on this unit she too attempted to contact Katie and was not getting a return call. LARRY told her that she did give [facility] her brother's information. LARRY received a vm from Steven stating that his sister Katie said that SW was looking for him. LARRY sent Steven and email updating him to the fact that [facility] was trying to locate him. She also informed him that she received feedback that they did speak with him. LARRY team will continue to follow pt during her stay on this unit.
[2021-04-17 19:50] VITALS: BP 124/63
[2021-04-17 19:54] VITALS: BP 149/104
--- NOTE | 2021-04-17 22:06 | NUR ---
2200 RESUMMED CARE FROM DAY SHIFT PATIENT CALM COOPERATIVE DENIES SI/HI/AH/VH AT PRESENT. PATIENTS FAMIY VISITED PATIENT VERY PLEASED PATIENT ALERT ORIENTED TO SELF. PATIENTS ABDOMEN SOFT BOWEL SOUNDS PRESENT PATIENTS LUNGS CLEAR. PATIENT HAS NOT DISPLAYED ANY BEHAVIORS AT PRSESENT; WILL CONTINUE TO MONITOR PATIENT FOR SAFET AND BEHAVIORS.
[2021-04-18 09:00] VITALS: BP 81/54
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
--- NOTE | 2021-04-18 14:57 | NUR ---
LARRY received an email from Steven Amaya stating that he would like a referral sent to [facility]. LARRY explained that is not a Medicaid approved facility. Steven wrote back acknowledging that he knows pt needs private pay placement as he does not qualify for Medicaid at this time. LARRY sent referrals to the following: [email or web address] [place] [facility]. SW team will continue to follow pt during his stay on this unit.
--- NOTE | 2021-04-18 19:08 | NUR ---
PATIENT CARE ASSUMED AT 0700 - CALM AND AGREEABLE BUT VERY DETACHED. MED COMPLIANT. GOOD APPETITE - AMBULATES INDEPENDENTLY WITH STEADY GAIT. DENIES S/I - SLOW TO RESPOND TO QUESTIONS ADDRESSED TO HIM. ISOLATES AT TIMES TO HIS ROOM. VERY HARD OF HEARING NO HEARING AIDS ON BOARD. BLOOD SUGARS WERE WITHIN NORM WITH DINNER TIME BEING AT 172.
[2021-04-18 19:24] VITALS: BP 110/67
[2021-04-18 23:33] VITALS: BP 110/67
--- NOTE | 2021-04-18 23:41 | NUR ---
Pt intermittently sleeps in his room and then will come out in the day room and sit. Took his medications whole with water without difficulty. Alert but did not conversate with this nurse. Pt is able to make his needs known. Pt affect is flat. Currently not exhibiting s/s of SI/HI/AH/VH. will continue to monitor throughout shift.
[2021-04-19 08:24] VITALS: BP 103/68
--- NOTE | 2021-04-19 10:15 | NUR ---
Alert and orientated to name only. Ambulates with slow, steady gait. Compliant with meds this AM, took whole without difficulty. Denies SI/HI. Breath sounds clear. Reg HR auscultated. Color pink with brisk capillary refill and palpable peripheral pulses. No edema noted. Incontinent of yellow urine per brief. Smear of stool on brief. Active bowel sounds over soft, flat abdomen. Erythema and excoriation between buttocks, cleaned and zguard applied.
[2021-04-19 19:26] VITALS: BP 109/67
[2021-04-19 19:30] VITALS: BP 109/67
--- NOTE | 2021-04-19 21:27 | NUR ---
Assumed care on 04/19/21 @ 1900, seated in the day room, ambulates to bedroom, steady gait noted. Low fall risk. A&Ox1 only able to give name. HRRR, Lungs CTA bilat, ABD N does not answer when asked mental health assessment questions, appears to be [place]. FSBS 269, 25 units of lantus provided RUQ of ABD. Ambulates the halls after the TV turned off. Will continue to monitor for safety and comfort as per unit protocol.
[2021-04-20 05:38] LABS: ABSOLUTE NEUTROPHILS 2.8 thou/uL (1.4-8.2); BASOPHILS 1.9 % (0.0-2.0); EOSINOPHILS 3.6 % (0.0-3.0); HEMATOCRIT 34.5 % (42.0-52.0); HEMOGLOBIN 11.5 gm/dL (14.0-18.0); LYMPHOCYTES 34.7 % (24.0-44.0); MCH 29.8 pg (26.0-34.0); MCHC 33.2 g/dL (28.0-37.0); MCV 89.7 fL (80.0-100.0); MONOCYTES 10.6 % (1.0-8.0); PLATELET COUNT 192 thou/uL (150-400); POLYS 49.2 % (36.0-66.0); RBC 3.84 mil/uL (4.50-6.00); WBC 5.6 thou/uL (4.0-11.0)
[2021-04-20 06:01] LABS: ALBUMIN 2.8 g/dL (3.4-5.0); CALCIUM 10.1 mg/dL (8.5-10.1); MAGNESIUM 2.1 mg/dL (1.8-2.4); POTASSIUM 4.1 mmol/L (3.5-5.1); TOTAL BILIRUBIN 0.3 mg/dL (0.2-1.0); TOTAL PROTEIN 6.4 g/dL (6.4-8.2)
[2021-04-20 07:36] VITALS: BP 100/82
[2021-04-20 07:47] VITALS: BP 100/82
[2021-04-20 08:24] VITALS: BP 85/59
--- NOTE | 2021-04-20 11:00 | NUR ---
ASSUMED CARE AT 0700 - SLEEPING WHEN ARRIVING ON UNIT. LATER WAS IN DINING LOZANO. BLOOD PRESSURE TAKEN AND WAS 85/59 - DID MANUAL CHECK AT 0735 ANDWAS 100/82 - ADVISED DR. ELIZONDO OF THIS WHEN SHE CAME AND ASSESSED PATIENT. AFTER BREAKFAST CHOSE TO GO BACK TO HIS ROOM - DID NOT PARTICIPATE IN GROUP. COMPLAINED OF BEING COLD AND GIVEN ADDITIONAL BLANKETS. AFFECT REMAINS BLUNTED AND FLAT AND MOOD DETACHED. COMPLIANT WITH MEDICATIONS/ AMBULATORY - APPETITE GOOD -
--- NOTE | 2021-04-20 12:06 | NUR ---
RT PROCESS NOTE-- PT APPEAR TO BE CALM. PT GROUP PARTICIPATION HAS BEEN MODERATE. PT HAS BEEN BE REMINDER WHEN GROUPS ARE BEING HELD FOR ATTENDANCE. FOR THE MOST PART, [facility] W[facility]ING TV IF NOT IN HIS ROOM.
[2021-04-20 19:25] VITALS: BP 109/68
[2021-04-20 19:30] VITALS: BP 109/68
--- NOTE | 2021-04-20 23:15 | NUR ---
Assumed care on 04/20/21 @ 1900, pacing hallways and alternately lying down in bed. A&Ox1 HRRR, Lungs CTA bilat, ABD N x 4Q. Trying to get a urine specimen however patient's dementia and [place] makes him resistant to collecting urine specimen. New order for an additional 50mg of Trazadone given @ 21:30, patient slept until 2230, then got up and is pacing the hallways and sitting in the day room.
[2021-04-21 08:52] VITALS: BP 102/67
--- NOTE | 2021-04-21 12:05 | NUR ---
Updates on placement are as follows: [facility] - Clinically accepted. Has been trying to contact you. [facility] [phone] 04/21 [facility] - admissions is reviewing referral. 04/21 [facility] - referral resent 04/21 [facility] - referral resent 04/21 [facility] - left msg for admissions 04/21 [facility] - admissions is reviewing referral. [facility] - left msg for admissions 04/21 [facility] - left msg for facility. 04/21 [facility] - no answer at facillity 04/21 [facility] - Referral resent 04/21 [facility] - no answer at facility. 04/21 SW team will continue to follow pt during his stay on this unit.
--- NOTE | 2021-04-21 15:45 | NUR ---
Assumed pt care at 0700. pt was in his room awake. Calm and cooperative with care. ACTIVE BOWEL SOUNDS, REGULAR HEART SOUNDS, VSS. assessments completed. Denies si/hi, Denies pain at this time. took meds whole, no difficulty noted. Ambulates with a steady gait. Meds administered as ordered. No sign of acute distress noted upon assessments. Will continue to monitor pt.
[2021-04-21 19:52] VITALS: BP 105/67
[2021-04-21 20:00] VITALS: BP 105/67
--- NOTE | 2021-04-22 02:36 | NUR ---
PATIENT WAS UP AND BACK AND FORTH FROM ROOM TO DINING ROOM THIS EVENING. HE IS WANTING TO GO HOME. HE IS DELUSIONAL AND THINKS HE IS AT DIFFERENT PLACES THAN HE ACTUALLY IS. HIS ACCUCHECK WAS 80 TONIGHT AND LANTUS 25U WAS HELD. HE WAS GIVEN HS SNACK. HE TOOK HIS MEDS WITH WATER. HE HAS BEEN CALM AND COOPERATIVE. HE DENIES PAIN, SI/HI/AVH. HE WALKED BACK TO HIS ROOM TO GO TO BED ON HIS OWN. PT IS RESTING WITH EYES CLOSED AT THIS TIME. PATIENT VERY [place]. ROUTINE ROUNDS TO ASSESS SAFETY AND STATUS OF PATIENT. CONTINUING TO MONITOR.
[2021-04-22 09:19] VITALS: BP 98/63
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
--- NOTE | 2021-04-22 18:14 | NUR ---
Assumed pt care at 0700. pt was in his room resting. Assessments completed, vss. active bowel sounds, S1 S2 regular. Denies si/hi, denies pain at this time. No sign of acute distress noted upon assessments. Took meds whole, no difficulty noted. AMbulates with a steady gait. continent of bowel and bladder.Calm, cooperative with care and assesssments. pt is oriented to self. Meds administered as ordered. at this time pt is wandering the unit. Will continue to monitor.
[2021-04-22 20:10] VITALS: BP 118/61
--- NOTE | 2021-04-23 03:23 | NUR ---
04-22-21 CARE TRANSFERRED 0 OBSERVED PT WALKING IN HALLWAYS. LATER PT AAOX1, VSS, RR EVEN AND NONLABORED ON RA. PT PRESENTS CALM AND COOPERATIVE, IS [place] AND COMMUNICATION CAN BE CHALLENGING. DURING MEDICATION ADMIN PT HAD NO DIFFICULTIES. LATER NOTED PT UP WALKING AND TALKING TO SELF IN DAY ROOM. PT WILL CONTINUE TO BE MONITOR PER [facility].
[2021-04-23 08:50] VITALS: BP 85/58
[2021-04-23 09:18] VITALS: BP 85/58
[2021-04-23 10:06] VITALS: BP 110/70
--- NOTE | 2021-04-23 11:34 | NUR ---
Samanta with [facility] came to assess pt. Pt was asleep when she arrived. She watched pt for approx 20 min and then spoke to staff. She said they are 85% likely to accept pt. LARRY reiterated with Dr. Lopez told Steven Amaya and that is pt has to discharge by Wednesday. She said she is aware and will proceed. LARRY sent the following update to Steven Amaya: [facility] - Completed onsite review. Samanta said they are likely to take him. LARRY explained to Samanta that pt must discharge by Wednesday. [facility] - accepted. SW team will continue to follow pt during his stay on this unit.
--- NOTE | 2021-04-23 11:45 | NUR ---
1146 RESUMES CARE FROM OVERNIGHT SHIFT THIS AM. PT ALERT TO SELF AND PLACE. PT SITTING IN DAY ROOM QUIET. PT ATE BREAKFAST AND TOOK MEDICATIONS WITHOUT ISSUES. PT DENIES SI/HI/AH/VH DURING ASSESSMENT. PT ABDOMEN SOFT, BOWELS SOUNDS PRESENT. PTS LUNGS CLEAR,PT CALM, COOPERATIVE. PT HAS NOT DISPLAYED ANY BEHAVIORS. PT INSTRUCTED THAT URINE SPECIMEN NEEDED FOR UA. PT VERBALIZED UNDERSTANDING, URINAL GIVEN TO PT. WILL CONT TO MINOTR PT FOR SAFETY NEEDS.
[2021-04-23 19:24] VITALS: BP 125/76
[2021-04-23 19:30] VITALS: BP 125/76
[2021-04-23 23:16] LABS: URINE BILIRUBIN NEGATIVE (Negative); URINE BLOOD NEGATIVE (Negative); URINE CLARITY CLEAR; URINE COLOR YELLOW; URINE GLUCOSE-RANDOM* NEGATIVE (Negative); URINE KETONES NEGATIVE (Negative); URINE LEUKOCYTES-REFLEX TRACE (Negative); URINE NITRITE-REFLEX NEGATIVE (Negative); URINE PROTEIN (DIPSTICK) NEGATIVE (Negative); URINE UROBILINOGEN 0.2 E.U./dl (0.2-1.0)
--- NOTE | 2021-04-24 03:42 | NUR ---
Assumed care on 04/23/21 @ 1900, A&Ox1 oriented to self only, independent with toileting. Ambulates with a steady gait without using a device. Low fall risk. Cooperative with assessment and comliant with medication, no behaviors noted. UA colllected and delivered to the inpatient lab. Retired to bed @ HS. Will continue to monitor for safety and comfort as per unit protocol.
[2021-04-24 08:43] VITALS: BP 102/59
--- NOTE | 2021-04-24 11:07 | NUR ---
Alert and orientated to name only. Denies SI/HI. Ambulates with slow, steady gait. Breath sounds clear. Reg HR auscultated. Color pink with brisk capillary refill and palpable peripheral pulses. No edema noted. Active bowel sounds over soft, flat abdomen. Independent with voiding. Brief dry. Area between buttocks with erythema, cleaned and zpasted applied. Calm, cooperative and compliant. Took meds whole.
--- NOTE | 2021-04-24 11:13 | NUR ---
LARRY received an email from Samanta with [facility] confirming they have accepted pt, and asking for a form to be filled out with a covid test for pt. She also asked for 3 days of meds to be sent with pt. LARRY and [facility] both explained to Samanta that the hospital does not discharge with meds. Dr. Crouch will provide a prescription; meds can even be called into the pt's pharmacy of choice, however, meds will not be sent with pt. LARRY gave the form with the requests to pt's nurse and asked her to return the document to LARRY. LARRY team will continue to follow pt's stay on this unit.
--- NOTE | 2021-04-24 17:51 | NUR ---
COVID sent and then repeated. Neg results. Steven up ambulating around unit without s/o distress.
[2021-04-24 19:37] VITALS: BP 114/70
[2021-04-25] MEDS ORDERED: LANTUS SUBQ ×2 (08:21→11:41)
[2021-04-25] MEDS ORDERED: GLUCOTROL5 MG PO ×2 (08:22→11:41)
[2021-04-25 08:52] VITALS: BP 99/72
--- NOTE | 2021-04-25 11:07 | NUR ---
Alert and orientated to name only. Calm, cooperative and compliant. Ambulating with regular, steady gait. Breath sounds clear. Reg HR auscultated. Color pink with brisk capillary refill and palpable peripheral pulses. Brief dry. Active bowel sounds over soft, flat abdomen. Quiet without s/o distress this AM.
--- NOTE | 2021-04-25 12:51 | NUR ---
LARRY D/C NOTE Laura Wilson with [facility] contacted LARRY and asked her to send pt's discharge docs by email. LARRY sent in an encrypted email a copy of pt's discharge documents to [email or web address]. LARRY will file discharge fax cover sheet in pt's hospital file. No other needs for SW team to address at this time.
== END 2021-04-25 14:04 | DRG 56 ==
LOC: SBH 14:48
PROVIDERS: Internal Medicine; ADMIT Psychiatry & Neurology Psychiatry; ATTEND Psychiatry & Neurology Psychiatry
DX: G31.83 Neurocognitive disorder with Lewy bodies (principal); F02.81 Dementia in other diseases classified elsewhere, unspecified severity, with behavioral disturbance; E43 Unspecified severe protein-calorie malnutrition; Z93.3 Colostomy status; E11.65 Type 2 diabetes mellitus with hyperglycemia; N39.0 Urinary tract infection, site not specified; G82.20 Paraplegia, unspecified; K59.2 Neurogenic bowel, not elsewhere classified; Z20.822 Contact with and (suspected) exposure to COVID-19; E11.9 Type 2 diabetes mellitus without complications; I10 Essential (primary) hypertension; F32.9 Major depressive disorder, single episode, unspecified; E55.9 Vitamin D deficiency, unspecified; D64.9 Anemia, unspecified; L89.899 Pressure ulcer of other site, unspecified stage; N31.9 Neuromuscular dysfunction of bladder, unspecified; Z63.5 Disruption of family by separation and divorce; Z68.22 Body mass index [BMI] 22.0-22.9, adult
CPT/HCPCS: 10880